=== PATIENT | female | born 1945 | race Caucasian/White ===

== ENCOUNTER 2017-03-29 12:15 | Day surgery (SDC) | payer MEDICARE, OTHER ==
[~2017-03-29] VITALS: Ht 165.1 cm; Wt 90.7 kg
[~2017-03-29 12:15] MED LIST: ARTHRITIS PAIN650 MG PO; ASPIR-TRIN325 MG PO; ASPIRIN EC325 MG PO; ASPIRIN EC81 MG PO; BENADRYL25 MG PO; BYSTOLIC5 MG PO; COLLAGEN PLUS1 EACH PO; DAILY VITE1 EACH PO; DILAUDID4 MG PO; FEVERFEW EXTRACT1 GM PO; FISH OIL 1,0001 EAC1 PO; FISH OIL500 MG PO; LISINOPRIL10 MG PO; LISINOPRIL20 MG PO; LUTEIN20 M1 PO; MELATONIN5 M2 PO; MIRALAX17 GM PO; NORCO 7.5-3251 EACH PO; OCUVITE TABLET1 EAC1 PO; RESTASIS1 DROP OD; VITAMIN D250000 UNIT PO; VITAMIN D5000 UNIT PO; XARELTO10 MG PO; ZETIA10 MG PO
--- NOTE | 2017-03-29 13:45 | NUR ---
03/29/17 3518 Lora Schmidt PT DENIES PAIN AND DISCOMFORT, PT IS PASSING GAS
--- NOTE | 2017-03-30 13:23 | OR ---
[facility] [address] [place], [place] [address] Signed DATE OF OPERATION: 03/29/2017 SURGEON: Ameya Ochoa MD PREOPERATIVE DIAGNOSIS: History of tubular adenoma, 2013. POSTOPERATIVE DIAGNOSIS: Normal colon to cecum. PROCEDURE: Total colonoscopy to cecum. ANESTHESIA: Intravenous sedation, fentanyl 100 mcg, Versed 7 mg. INDICATION: This 71-year-old white Chinese-Turkmen woman who is a patient of Dr. Navarrete and underwent colonoscopy by nm in 2013, where she was found to have a tubular adenoma, which was resected. She has no family history of colon cancer. She has undergone knee replacement on the left side in the past by Dr. Andrae Quach. She is here for surveillance colonoscopy on the basis of her prior tubular adenoma, understands the risks of bleeding, infection, and perforation. FINDINGS: The prep was excellent. Complete colonoscopy was undertaken of the cecum. There was no sign of polyps, diverticular formation, colitis, or cancer. DESCRIPTION OF PROCEDURE: The patient was brought to the endoscopy suite and placed in lateral decubitus position given intravenous sedation to the point of slurred speech and nystagmus. Digital rectal examination was normal. An Olympus video colonoscope was passed in the rectum and manipulated throughout the colon, ultimately intubating the cecum. Abdominal wall stabilization was required to allow for full visualization. The scope was withdrawn from that point and examination throughout was undertaken showing no sign of abnormality. Retroflexed view in the rectum was normal as well. The scope was removed. The patient was taken to recovery room in good condition. Electronically Signed By: AMEYA OCHOA MD 03/30/17 1323 PATIENT NAME: CHEMA LENTZ OPERATIVE REPORT DATE OF : 47 PHYSICIAN: AMEYA OCHOA MD REPORT #: [id number] REPORT IS CONFIDENTIAL AND NOT TO BE RELEASED WITHOUT AUTHORIZATION [facility] [address] [facility] [place] [address] Signed CONCLUSION DIAGNOSIS: Normal colon. PLAN: Recommend repeat colonoscopy in 5-7 years, sooner if clinically indicated. She will return to the ongoing care of Dr. Navarrete otherwise. MD ROBSON Bourne/MODL /[id number] cc: Giles Navarrete MD Electronically Signed By: AMEYA OCHOA MD 03/30/17 1323 PATIENT NAME: CHEMA LENTZ OPERATIVE REPORT DATE OF : 47 PHYSICIAN: AMEYA OCHOA MD REPORT #: [id number] REPORT IS CONFIDENTIAL AND NOT TO BE RELEASED WITHOUT AUTHORIZATION
== END 2017-03-29 14:18 | disposition home or self-care (01) ==
LOC: OPS 12:15 → DS 12:15 → OPS 13:00
PROVIDERS: Surgery
PROC: 0DJD8ZZ Inspection of Lower Intestinal Tract, Via Natural or Artificial Opening Endoscopic (ICD-10-PCS; principal; 2017-03-29 13:00)
DX: Z12.11 Encounter for screening for malignant neoplasm of colon (principal); K21.9 Gastro-esophageal reflux disease without esophagitis; G43.909 Migraine, unspecified, not intractable, without status migrainosus; I10 Essential (primary) hypertension; J45.909 Unspecified asthma, uncomplicated; Z86.010 Personal history of colon polyps; Z90.710 Acquired absence of both cervix and uterus; Z90.49 Acquired absence of other specified parts of digestive tract; Z96.652 Presence of left artificial knee joint; Z98.890 Other specified postprocedural states
CPT/HCPCS: 99153; G0500; J0694; J2250; J3010; J7120

== ENCOUNTER 2018-12-21 20:37 | Emergency (ER) | payer MEDICARE, OTHER ==
[~2018-12-21] VITALS: Ht 165.1 cm; Wt 86.2 kg
--- OUTSIDE RECORDS SUMMARY | ~2018-12-21 | XMS | Clinical Summary ---
Demographics + + + | Address | [address] | | | [place] [address] | + + + | Home Phone | | + + + | Preferred Language | Unknown | + + + | Marital Status | | + + + | Mosque Affiliation | CAT | + + + | Race | White | + + + | Ethnic Group | Not or | + + + Author + + + | Author | [facility] | + + + | Organization | [facility] | + + + | Address | Unknown | + + + | Phone | Unavailable | + + + Support + + +---------+ + | Name | Relationship | Address | Phone | + + +---------+ + | Vijay Eisenberg | ECON | Unknown | | + + +---------+ + Care Team Providers + +------+ + | Care Leases And Land Supervisor Name | Role | Phone | + +------+ + | Unknown | PCP | Unavailable | + +------+ + Source Comments DANA is fully live on both [facility] and [facility] Allergies + + + + + + | Active Allergy | Reactions | Severity | Noted | Comments | | | | | Date | | + + + + + + | Codeine | | | 07/07/18 | | | | | | 95 | | + + + + + + Medications + + + +---------+------+------+-------+ | Medication | Sig | Dispensed | Refills | Star | End | Statu | | | | | | t | Date | s | | | | | | Date | | | + + + +---------+------+------+-------+ | ASPIRIN 81 MG TAB | None Entered | | 0 | | | Activ | | | | | | | | e | + + + +---------+------+------+-------+ | ZETIA 10 MG TAB | take 1 tablet (10mg) | | 0 | | | Activ | | | by oral route once | | | | | e | | | daily | | | | | | + + + +---------+------+------+-------+ | LISINOPRIL 10 MG | take 1 tablet (10mg) | | 0 | | | Activ | | TAB | by oral route once | | | | | e | | | daily | | | | | | + + + +---------+------+------+-------+ | FLONASE NA | None Entered | | 0 | | | Activ | | | | | | | | e | + + + +---------+------+------+-------+ | GLUCOSAMINE | None Entered | | 0 | | | Activ | | [id number] | | | | | | e | | OR | | | | | | | + + + +---------+------+------+-------+ | MSM OR | None Entered | | 0 | | | Activ | | | | | | | | e | + + + +---------+------+------+-------+ Active Problems Not on file Social History + +-------+ +--------+------+ | Tobacco Use | Types | Packs/Day | Years | Date | | | | | Used | | + +-------+ +--------+------+ | Never Assessed | | | | | + +-------+ +--------+------+ + + + | Sex Assigned at | Date Recorded | | | | + + + | Not on file | | + + + + + + + | Job Start Date | Occupation | Industry | + + + + | Not on file | Not on file | Not on file | + + + + + + + + | Travel History | Travel Start | Travel End | + + + + + + | No recent travel history available. | + + Last Filed Vital Signs + +---------+ + + | Vital Sign | Reading | Time Taken | Comments | + +---------+ + + | Blood Pressure | 128/76 | 12/31/2005 12:45 PM | | | | | PDT | | + +---------+ + + | Pulse | 60 | 12/31/2005 12:45 PM | | | | | PDT | | + +---------+ + + | Temperature | - | - | | + +---------+ + + | Respiratory Rate | 18 | 12/31/2005 12:45 PM | | | | | PDT | | + +---------+ + + | Oxygen Saturation | - | - | | + +---------+ + + | Inhaled Oxygen | - | - | | | Concentration | | | | + +---------+ + + | Weight | - | - | | + +---------+ + + | Height | - | - | | + +---------+ + + | Body Mass Index | - | - | | + +---------+ + + Plan of Treatment + + + + + | Health Maintenance | Due Date | Last Done | Comments | + + + + + | Pneumococcal | | | | | vaccination (1 of 2 | 2 | | | | - PCV13) | | | | + + + + + | Influenza (Flu) | | | | | vaccination (#1) | 9 | | | + + + + + Results Not on filefrom Last 3 Months Insurance + +--------+ +--------+ + +------+ | Payer | Benefi | Subscriber | Effect | Phone | Address | Type | | | t Plan | ID | nelia | | | | | | / | | Dates | | | | | | Group | | | | | | + +--------+ +--------+ + +------+ | BLUE [employer]OSS BLUE | REGENC | [phone] | 06/16/19 | [phone] | [address] | PPO | | SHIELD | E [employer] | x | 18-Pre | 8 | [id number] | | | | | | sent | | [place], | | | | | | | | [place] | | | | | | | | [phone] | | + +--------+ +--------+ + +------+ + +--------+ +--------+ + + | Guarantor Name | Accoun | Relation to | Date | Phone | Billing Address | | | t Type | Patient | of | | | | | | | | | | + +--------+ +--------+ + + | Emma Eisenberg | Person | Self | [birth year] | [address] | | | al/Fam | | 1946 | [phone] | [place] [address] | | | mike | | | 8 (Home) | | + +--------+ +--------+ + +"
--- OUTSIDE RECORDS SUMMARY | ~2018-12-21 | XMS | Encounter Summary ---
Demographics + + + | Address | [address] | | | [place] [address] | + + + | Home Phone | | + + + | Preferred Language | Unknown | + + + | Marital Status | | + + + | Sikh Affiliation | CAT | + + + | Race | White | + + + | Ethnic Group | Not or | + + + Author + + + | Author | [facility] | + + + | Organization | [facility] | + + + | Address | Unknown | + + + | Phone | Unavailable | + + + Support + + +---------+ + | Name | Relationship | Address | Phone | + + +---------+ + | iVjay Eisenberg | ECON | Unknown | | + + +---------+ + Care Team Providers + +------+ + | Care Axle Bearing Polisher Name | Role | Phone | + +------+ + | Unknown | PCP | Unavailable | + +------+ + Encounter Details +--------+ + + + + | Date | Type | Department | Care Team | Description | +--------+ + + + + | 03/19/ | Results | LAB [facility] [address] | [address] | | | 1994 | Only | [address] | [phone] | | | | | [place] | | | | | | [address] | | | | | | [phone] | | | +--------+ + + + + Social History + +-------+ +--------+------+ | Tobacco [...] recent travel history available. | + + documented as of this encounter Plan of Treatment Not on filedocumented as of this encounter Procedures + +--------+ + + + | Procedure Name | Priori | Date/Time | Associated Diagnosis | Comments | | | ty | | | | + +--------+ + + + | SURGICAL PATHOLOGY | Routin | 03/19/1994 | | Results for this | | | e | | | procedure are in the | | | | | | results section. | + +--------+ + + + documented in this encounter Results SURGICAL PATHOLOGY (03/19/1994) + + + + + + | Component | Value | Ref Range | Performed | Pathologist | | | | | At | Signature | + + + + + + | SURGICAL | SOURCE OF SPECIMEN: SEE | | [facility] | | | PATHOLOGY | RESULTS | | DEPARTMENT | | | | Preliminary | | OF | | | | History:CLINICAL | | PATHOLOGY | | | | HISTORYThe patient is a | | | | | | 48 year old 2 | | | | | | para 2 female who | | | | | | underwent acone biopsy | | | | | | in 1983 with continued | | | | | | bleeding from September to | | | | | | January. Shehad a | | | | | | dilatation and curettage | | | | | | 01/13. She does not | | | | | | receive any | | | | | | hormonaltherapy. | | | | | | GROSS | | | | | | DESCRIPTIONReceived from | | | | | | [facility] | | | | | | [facility], [place], | | | | | | [place], are nineslides | | | | | | bearing accession number | | | | | | [id number] and | | | | | | sublabeled A, B1-7, | | | | | | andC. The corresponding | | | | | | pathology report is | | | | | | dated 01/14/94. | | | | | | MICROSCOPIC | | | | | | DESCRIPTIONSlide | | | | | | [id number], labeled | | | | | | "ECC": The specimen | | | | | | consists mostly | | | | | | offragments of | | | | | | endometrial tissue | | | | | | showing and increased | | | | | | gland to stromaratio | | | | | | with the majority of the | | | | | | glands in the | | | | | | proliferative phase. | | | | | | Manyof the glands show | | | | | | dilation with some areas | | | | | | of infolding. In | | | | | | focalareas, the stroma | | | | | | is breaking down with an | | | | | | increased number of | | | | | | stromalleukocytes as | | | | | | well as hemorrhage. Also | | | | | | noted are small | | | | | | fragments ofdisconnected | | | | | | endocervical glands | | | | | | which appear normal. | | | | | | There is also asmall | | | | | | fragment of normal | | | | | | squamous mucosa. | | | | | | Slides B1-7, labeled | | | | | | "EMC": All these slides | | | | | | show similar | | | | | | histologicfeatures. | | | | | | There are fragments of | | | | | | endometrial tissue with | | | | | | and increasedgland to | | | | | | stroma ratio. Many of | | | | | | the glands are tortuous, | | | | | | dilated and | | | | | | showinfoldings. There | | | | | | are focal areas of | | | | | | stromal | | | | | | breakdown. Slide | | | | | | C, labeled "cervical | | | | | | polyp." This slide is | | | | | | a biopsy ofendocervical | | | | | | tissue showing areas of | | | | | | squamous metaplasia | | | | | | over normalendocervical | | | | | | glands. There is a focus | | | | | | of endometrial tissue | | | | | | present inthe cervical | | | | | | stroma. The cells making | | | | | | up the glands show no | | | | | | cytologicabnormalities. | | | | | | FINAL | | | | | | DIAGNOSISSlide | | | | | | [id number]:ENDOCERVICAL | | | | | | CURETTAGE | | | | | | (A): COMPLEX | | | | | | ENDOMETRIAL HYPERPLASIA | | | | | | WITHOUT | | | | | | ATYPIA DISCONNECTED | | | | | | FRAGMENTS OF BENIGN | | | | | | ENDOCERVICAL | | | | | | GLANDSENDOMETRIAL | | | | | | CURETTAGE | | | | | | (B): COMPLEX | | | | | | ENDOMETRIAL HYPERPLASIA | | | | | | WITHOUT ATYPIASPECIMEN | | | | | | LABELED "CERVICAL POLYP" | | | | | | | | | | | | (C): ENDOMETRIOSIS(Ou | | | | | | tside slides) | | | | | | Case dictated by Dusty | | | | | | Kingsley ChauhanCase | | | | | | reviewed by Giles | | | | | | Bib Huerta M.D.Also | | | | | | seen by: Christy | | | | | | Amanda | | | | | | Kingsleyt:03/25/94:cc/f(Nine | | | | | | slides returned with | | | | | | report) My | | | | | | electronic signature | | | | | | indicates that I have | | | | | | personally reviewed | | | | | | alldiagnostic slides, | | | | | | the gross and/or | | | | | | microscopic portion of | | | | | | thisreport and | | | | | | formulated the final | | | | | | diagnosis. | | | | + + + + + + + + | Specimen | + + | Other | + + + + + + + | Performing | Address | City/State/Zipcode | Phone Number | | Organization | | | | + + + + + | [facility] | [address] | [place] [address] | | | PATHOLOGY | [address] | | | + + + + + documented in this encounter Visit Diagnoses Not on filedocumented in this encounter
--- OUTSIDE RECORDS SUMMARY | ~2018-12-21 | XMS | Encounter Summary ---
Demographics + + + | Address | [address] | | | [place] [address] | + + + | Home Phone | | + + + | Preferred Language | Unknown | + + + | Marital Status | | + + + | Mu-Ism Affiliation | CAT | + + + | Race | White | + + + | Ethnic Group | Not or | + + + Author + + + | Author | [facility] | + + + | Organization | [facility] | + + + | Address | Unknown | + + + | Phone | Unavailable | + + + Support + + +---------+ + | Name | Relationship | Address | Phone | + + +---------+ + | Vijay Eisenberg | ECON | Unknown | | + + +---------+ + Care Team Providers + +------+ + | Care Manager Action Name | Role | Phone | + [...] | Only | [address] | [phone] | | | | | [place] | | | | | | [address] | | | | | | [phone] | | | +--------+ + + + [...] from | | | | | | [facility] | | | | | | [facility]ology, [place], | | | | | | [place], are nineslides | | | | | [...] DESCRIPTIONSlide | | | | | | [id number], labeled | | | | | | [...] | + + + + + | [facility] | [address] | [place] [address] | | | PATHOLOGY | [address] | | | + + + + + documented in this encounter Visit Diagnoses Not on filedocumented in this encounter
--- OUTSIDE RECORDS SUMMARY | ~2018-12-21 | XMS | Encounter Summary ---
Demographics + + + | Address | [address] | | | [place] [address] | + + + | Home Phone | | + + + | Preferred Language | Unknown | + + + | Marital Status | | + + + | Church Affiliation | CAT | + + + | Race | White | + + + | Ethnic Group | Not or | + + + Author + + + | Organization | Unknown | + + + | Address | Unknown | + + + | Phone | Unavailable | + + + Support + + +---------+ + | Name | Relationship | Address | Phone | + + +---------+ + | Vijay Eisenberg | ECON | Unknown | | + + +---------+ + Care Team Providers + +------+ + | Care Text Transcriber Name | Role | Phone | + +------+ + PCP | Unavailable | + +------+ + Encounter Details +--------+ + + + + | Date | Type | Department | Care Team | Description | +--------+ + + + + | 12/06/ | Office | | Note, Outpatient | Progress Note | | 2002 | Visit-Trans | | Clinic | | | | cribed | | | | +--------+ + + + [...] + + documented as of this encounter Progress Notes Interface, Solutions Engineer In - 08/30/2005 3:08 AM PDTCLINIC DATE: 12/06/2002 OTOLARYNGOLOGY CLINIC SUBJECTIVE: Ms. Eisenberg is a 57-year-old woman who has noted soreness in the left nose over the last several weeks. She had been given actually initial course of acyclovir thinking that this was an episode of herpes. She has also been given a course of antibiotics and bacitracin which has minimally improved her symptoms. She does have a history of allergic rhinitis and has been using Flonase for many years. This apparently works well. Rest of the history and physical exam details may be obtained from the note of Dr. Giles Aguillon. In summary, rigid nasal endoscopy of both nasal cavities revealed essentially clear right nasal cavity. Middle and inferior turbinates were clear. No pus was noted in the inferior and middle meatus. Left nasal cavity exam was significant for an anterior septal area of erythema and slight erosion; otherwise, the middle and inferior meatus were clear on the left side. No other masses were noted nor other lesions noted. The nasopharynx was clear. IMPRESSION AND PLAN: Likely irritation from the Flonase, and the manner in which the patient is using the Flonase is likely causing a septal irritation. We reviewed proper application of Flonase, this medication should be directed upwards and outwards and not directed toward the septum. The patient may use [place] Nasal spray as well on a regular basis. She may continue to use her bacitracin ointment for the next couple of weeks. The patient will, otherwise, follow up in 3 months' time. Justino Galindo M.D. CAROLE / CHEYANNE [id number] / [id number] / [id number] / [employer] Solutions Engineer In - 08/30/2005 3:08 AM PDTCLINIC DATE: 12/06/2002 CHIEF COMPLAINT: Sore in nose. HISTORY OF PRESENT ILLNESS: Ms. Eisenberg is a 57-year-old woman, who states that she has had some long-term difficulties with her sinuses. She was seen by us about 8 years ago, at which time her sinuses were clear, but she was started on Flonase nasal spray. She states that most of her symptoms resolved since she was started on Flonase. She has been using it since that time with brief interludes for various reasons. She is here today, because since July 2002, she developed a sore in the left side of her nasal cavity that she first was concerned it was caused by herpes, and therefore, she took various fugx-yre-ojuruaf herpes remedies with no relief. She was also then treated for a staphylococcal infection by her primary care physician using Bacitracin, which helped a little bit but not completely. Finally, she has been on the course of Keflex antibiotics, which also she feels may be helping but not completely. She states that she occasionally has a blood, when she blows her nose on the left side. She denies any other sinus symptoms like discolored nasal discharge, congestion, or postnasal drip. She has not had any sinus infections since she started the Flonase 8 years ago. PAST MEDICAL HISTORY: Otherwise positive for cardiac-related chest pain, which is controlled with Imdur and gastroesophageal reflux disease. PAST SURGICAL HISTORY: Hysterectomy, appendectomy, and cholecystectomy. MEDICATIONS: Imdur, Flonase, Protonix, and Keflex. ALLERGIES: CODEINE. SOCIAL HISTORY: She quit smoking 10 years ago, but amassed a 92-myxf-xkoy smoking history. She drinks 1 to 2 alcoholic drinks per week. She is a retired rehabilitation therapist and lives with her . She denies any pets. FAMILY HISTORY: Noncontributory. REVIEW OF SYSTEMS: Negative except as described above. PHYSICAL EXAMINATION VITAL SIGNS: Weight is 184 pounds, blood pressure 110/78, and pulse rate 74. GENERAL: She is an awake, alert, and pleasant woman in no apparent distress. HEENT: Head and face are symmetric. No obvious deformity. Ears: External auditory canals are clear. Tympanic membranes and middle ear spaces appear normal. Anterior rhinoscopy shows atrophic mucosa. No drainage or polyp seen. Oral cavity and oropharynx: She is edentulous with normal oral and oropharyngeal mucosa. NECK: Supple. No lymphadenopathy or masses. PROCEDURE: Nasal endoscopy. ANESTHESIA: Lidocaine 4% topical. DESCRIPTION OF THE PROCEDURE: A 30-degree, 4-mm scope was first passed into the right nasal cavity. The mucosa was atrophic predominantly in the anterior portion of her nasal cavity. The middle turbinate and inferior turbinate otherwise appeared normal. The middle meatus was clear with no purulence or polyps. The sphenoethmoid recess was clear. She did have a spur along her inferior septum that nearly above the inferior turbinate. The scope was then passed into the left side. The anterior septal mucosa is particularly atrophic and friable. There is no ulceration or mass noted. There is also an area of atrophy and friability on the anterioinferior turbinate. The remainder of the mucosa appears fairly normal. The middle meatus is clear. There is no purulence or polyp. The sphenoethmoid recess is clear. The nasal floor is clear. ASSESSMENT: Nasal mucosal atrophy with an area of friable and mucosa on her anterior septum. This is likely due to chronic Flonase use, and I suspect that the Flonase is directed directly at that spot on her septum when she activates the inhaler. PLAN: We discussed with her the option of changing the steroid spray, but I feel that she would probably mainly benefit from redirecting which way she sprays the Flonase so that she does not directly irritate this part of her septum. Therefore, she was educated on the proper use of the Flonase and specifically to aim the activator slightly laterally and superiorly each time she uses it. Additionally, she will start using saline nasal spray throughout the day to optimize her nasal hygiene. We will have her followup in 3 months' time to reassess. MD Justino Dill M.D. / [id number] / [id number] / [id number] / Tdocumented in this encounter Plan of Treatment Not on filedocumented as of this encounter Visit Diagnoses Not on filedocumented in this encounter"
--- OUTSIDE RECORDS SUMMARY | ~2018-12-21 | XMS | Clinical Summary ---
Demographics + + + | Address | [address] | | | [place] [address] | + + + | Home Phone | | + + + | Preferred Language | Unknown | + + + | Marital Status | | + + + | Yarsanism Affiliation | Unknown | + + + | Race | Unknown | + + + | Ethnic Group | Unknown | + + + Author + + + | Author | [facility] | | | and [place] | + + + | Organization | [facility] | | | and [place] | + + + | Address | Unknown | + + + | Phone | Unavailable | + + + Support + + +---------+ + | Name | Relationship | Address | Phone | + + +---------+ + | JANELLE MOON | ECON | Unknown | | + + +---------+ + | Janelle Moon | ECON | Unknown | + | + + +---------+ + Care Team Providers + +------+ + | Care Sap Bw Consultant Name | Role | Phone | + +------+ + | Giles Navarrete MD | PCP | | + +------+ + Allergies + + + +--------+ + | Active Allergy | Reactions | Severity | Noted | Comments | | | | | Date | | + + + +--------+ + | Codeine Sulfate | | | | | + + + +--------+ + Medications + + + +---------+------+------+-------+ | Medication | Sig | Dispensed | Refills | Star | End | Statu | | | | | | t | Date | s | | | | | | Date | | | + + + +---------+------+------+-------+ | ezetimibe (ZETIA) | Take 10 mg by mouth | | 0 | 09/ | | Activ | | 10 mg tablet | Daily. | | | 3/20 | | e | | | | | | 12 | | | + + + +---------+------+------+-------+ | lisinopril | Take 10 mg by mouth | | 0 | 091 | | Activ | | (PRINIVIL, ZESTRIL) | Daily. | | | 3/20 | | e | | 10 mg tablet | | | | 12 | | | + + + +---------+------+------+-------+ | aspirin 325 mg | Take 325 mg by mouth | | 0 | 1 | | Activ | | tablet | Daily. | | | 320 | | e | | | | | | 12 | | | + + + +---------+------+------+-------+ | multivitamin | 1 tablet by mouth | | 0 | 11/12 | | Activ | | (THERAGRAN) per | once daily | | | 320 | | e | | tablet | | | | 12 | | | + + + +---------+------+------+-------+ | UNABLE TO FIND | Xxitra | | 0 | | | Activ | | | | | | | | e | + + + +---------+------+------+-------+ | ergocalciferol | Take 50,000 Units by | | 0 | | | Activ | | (VITAMIN D-2) 50,000 | mouth Once a week. | | | | | e | | units capsule | | | | | | | + + + +---------+------+------+-------+ | fluticasone | 1 spray by Nasal | | 0 | | | Activ | | (FLONASE) 50 | route Daily. | | | | | e | | mcg/nasal spray | | | | | | | + + + +---------+------+------+-------+ | | Take 1 capsule by | | 0 | | | Activ | | glucosamine-chondroi | mouth Daily. | | | | | e | | tin 500-400 MG | | | | | | | | capsule | | | | | | | + + + +---------+------+------+-------+ | Multiple | Take 1 tablet by | | 0 | | | Activ | | Vitamins-Minerals | mouth Daily. | | | | | e | | (MULTIVITAMIN WITH | | | | | | | | MINERALS) tablet | | | | | | | + + + +---------+------+------+-------+ | aspirin 325 mg | Take 325 mg by mouth | | 0 | | | Activ | | tablet | daily (with | | | | | e | | | breakfast). | | | | | | + + + +---------+------+------+-------+ | ezetimibe (ZETIA) | Take 10 mg by mouth | | 0 | | | Activ | | 10 mg tablet | as needed. | | | | | e | + + + +---------+------+------+-------+ | lisinopril | Take 10 mg by mouth | | 0 | | | Activ | | (PRINIVIL, ZESTRIL) | 2 times daily. | | | | | e | | 10 mg tablet | | | | | | | + + + +---------+------+------+-------+ Active Problems + + + | Problem | Noted Date | + + + | HIATAL HERNIA | 04/21/2010 | + + + | HYPERTENSION | | + + + | NONSPECIFIC ABNORMAL RESULTS LIVR FUNCTION STUDY | | + + + | CONSTIPATION, CHRONIC | | + + + Encounters +--------+ + + + + | Date | Type | Specialty | Care Team | Description | +--------+ + + + + | 10/05/ | Orders Only | | Provider, | | | 2018 | | | Historical, MD | | +--------+ + + + + from Last 3 Months Social History + +-------+ +--------+------+ | Tobacco Use | Types | Packs/Day | Years | Date | | | | | Used | | + +-------+ +--------+------+ | Former Smoker | | | | | + +-------+ [...] + + Last Filed Vital Signs + + + + | Vital Sign | Reading | Time Taken | + + + + | Blood Pressure | 130/60 | 08/17/2018 1050 PDT | + + + + | Pulse | 87 | 08/17/2018 1050 PDT | + + + + | Temperature | - | - | + + + + | Respiratory Rate | 20 | 08/04/2017 1334 PDT | + + + + | Oxygen Saturation | - | - | + + + + | Inhaled Oxygen | - | - | | Concentration | | | + + + + | Weight | 90 kg (198 lb 6.4 | 08/17/2018 1050 PDT | | | oz) | | + + + + | Height | 165.1 cm (5' 5") | 08/17/2018 1050 PDT | + + + + | Body Mass Index | 33.02 | 08/17/2018 1050 PDT | + + + + Plan of Treatment +--------+ + + + + | Date | Type | Specialty | Care Team | Description | +--------+ + + + + | 02/13/ | Appointment | Radiology | Evelio Blount, | | | 2018 | | | MD [address] | | | | | | [place] [address] | | | | | | [phone] | | | | | | | | +--------+ + + + + | 02/27/ | Office | Cardiology | Evelio Blount, | | | 2019 | Visit | | MD [address] | | | | | | [place] [address] | | | | | | [phone] | | | | | | | | +--------+ + + + + + + + + + | Health Maintenance | Due Date | Last Done | Comments | + + + + + | Hepatitis C | | | | | Screening | 7 | | | + + + + + | Vaccine: | | | | | Dtap/Tdap/Td (1 - | 6 | | | | Tdap) | | | | + + + + + | Colorectal Cancer | | | | | Screening | 7 | | | | (Colonoscopy) | | | | + + + + + | Vaccine: Zoster (1 | | | | | of 2) | 7 | | | + + + + + | Breast Cancer | | | | | Screening | 2 | | | + + + + + | Vaccine: | | | | | Pneumococcal 65+ | 2 | | | | Low/Medium Risk (1 | | | | | of 2 - PCV13) | | | | + + + + + | Adult Annual | | | | | Wellness Visit | 9 | | | + + + + + | Vaccine: Influenza | | | | | (#1) | 9 | | | + + + + + Results Not on filefrom Last 3 Months Insurance + +--------+ +--------+ +---------+--------+ | Payer | Benefi | Subscriber | Effect | Phone | Address | Type | | | t Plan | ID | nelia | | | | | | / | | Dates | | | | | | Group | | | | | | + +--------+ +--------+ +---------+--------+ | MEDICARE | MEDICA | [id number] | 07/20/19 | [phone] | | Medica | | | RE | | 12-Pre | 5 | | re | | | PART A | | sent | | | | | | AND B | | | | | | + +--------+ +--------+ +---------+--------+ | [employer] | [employer] | [id number] | 07/20/19 | | | Medica | | | HEALTH | | 12-Pre | | | re | | | MDCR | | sent | | | | + +--------+ +--------+ +---------+--------+ + +--------+ +--------+ + + | Guarantor Name | Accoun | Relation to | Date | Phone | Billing Address | | | t Type | Patient | of | | | | | | | | | | + +--------+ +--------+ + + | Emma Eisenberg | Person | Self [birth year] | [address] | | | [place]/Peter | | 1946 | [phone] | [place] | | | mike | | | [address] (Home) | [address] | + +--------+ +--------+ + + Advance Directives Patient has advance care planning documents on file. For more information, please contact:[facility] and [facility] [place] [address]
--- OUTSIDE RECORDS SUMMARY | ~2018-12-21 | XMS | Encounter Summary ---
Demographics + + + | Address | [address] | | | [place] [address] | + + + | Home Phone | | + + + | Preferred Language | Unknown | + + + | Marital Status | | + + + | Tenriism Affiliation | CAT | + + + | Race | White | + + + | Ethnic Group | Not or | + + + Author + + + | Author | [facility] | + + + | Organization | [facility] | + + + | Address | Unknown | + + + | Phone | Unavailable | + + + Support + + +---------+ + | Name | Relationship | Address | Phone | + + +---------+ + | Vijay Eisenberg | ECON | Unknown | | + + +---------+ + Care Team Providers + +------+ + | Care Tool And Die Designer Name | Role | Phone | + +------+ + | Unknown | PCP | Unavailable | + +------+ + Encounter Details +--------+ + + + + | Date | Type | Department | Care Team | Description | +--------+ + + + + | 07/21/ | Office | General Internal | Note, Outpatient | Progress Note | | 1995 | Visit-Trans | Medicine [address] | Clinic | | | | jazmine | [address] | | | | | | Mailcode: [id number] | | | | | | Outpatient Clinic | | | | | | [facility], [address] | | | | | | [place], [place] | | | | | | [address] | | | | | | [phone] | | | +--------+ + + + [...] as of this encounter Progress Notes Interface, Fish And Wildlife Biologist In - 06/10/2006 1:06 AM PDT CLINIC DATE: 07/22/95 [facility] SUBJECTIVE: [facility] after vaginal hysterectomy and right salpingo-oophorectomy for adenomatous hyperplasia. She is now 50 and reports that her medical history has been complicated in the last year by some anginal attacks which she experienced when she was in [place] at [facility]. This has been investigated with arteriography which was normal and she is now taking Indur 60 mg. per day. She also complains of headaches that have been quite severe but which she has self medicated with some naturopathic medicines including natural estrogen. She is reluctant to discontinue this medication. She does complain of some occasional stress incontinence but no bowel problems. She is also concerned about some hair thinning that she has noticed in the last few months. Thyroid function tests when performed have always been negative. PHYSICAL EXAMINATION: GENERAL AND VITAL SIGNS: Shows a cheerful 50-year-old whose weight is 180 pounds and blood pressure 120/78. BREASTS: Symmetrical without dominant masses and there is no local or regional lymphadenopathy. ABDOMEN: There is no distention and no local areas of tenderness. No hepatosplenomegaly and no masses are palpable. PELVIC: The external genitalia are healthy. The vagina shows no evidence of vaginitis and appears well estrogenized and is well supported. Pap smear is taken. On bimanual examination no adnexal masses are palpable and the left ovary appears normal. IMPRESSION: A 50-year-old who may have experienced some symptoms of estrogen withdrawal. PLAN: FSH is drawn. Mammogram recommended. A letter will be sent to Dr. Espinosa in [place] when the FSH report is received. If the FSH is elevated then it will be suggested to the patient that she start on estrogen replacement. Otherwise, she will probably continue to use the naturopathic remedies. Jenn Mccracken M.D. Professor and Overhauler Bus Truck, Obstetrics and Gynecology FARZANAK:donal documented in this encounter Plan of Treatment Not on filedocumented as of this encounter Visit Diagnoses Not on filedocumented in this encounter"
--- OUTSIDE RECORDS SUMMARY | ~2018-12-21 | XMS | Clinical Summary ---
Demographics + + + | Address | [address] | | | [place] [address] | + + + | Home Phone | | + + + | Preferred Language | Unknown | + + + | Marital Status | | + + + | Denominational Affiliation | Unknown | + + + | Race | Unknown | + + + | Ethnic Group | Unknown | + + + Author + + + | Author | [facility] | | | and [place] | + + + | Organization | [facility] | | | and [...] Team Providers + +------+ + | Care Upholstery Trimmer Name | Role | Phone | + [...] | 2018 | | | MD [address] | | | | | | [place] [address] | | | | | | [phone] | | | | | | | | +--------+ + + + + | 02/27/ | Office | Cardiology | Evelio Blount, | | | 2019 | Visit | | MD [address] | | | | | | [place] [address] | | | | | | [phone] | | | | | | | [...] +--------+ +---------+--------+ | MEDICARE | MEDICA | [id number] | 07/20/19 | [phone] | | Medica | | | RE | | 12-Pre | 5 | | re | | | PART A | | sent | | | | | | AND B | | | | | | + +--------+ +--------+ +---------+--------+ | [employer] | MODA | [id number] | 07/20/19 | | | Medica | [...] mike | | | 8 (Home) | [address] | + +--------+ +--------+ + + Advance Directives Patient has advance care planning documents on file. For more information, please contact:[facility] [place] [address]
--- OUTSIDE RECORDS SUMMARY | ~2018-12-21 | XMS | Encounter Summary ---
Demographics + + + | Address | [address] | | | [place] [address] | + + + | Home Phone | | + + + | Preferred Language | Unknown | + + + | Marital Status | | + + + | Restorationist Affiliation | CAT | + + + | Race | White | + + + | Ethnic Group | Not or | + + + Author + + + | Author | [facility] | + + + | Organization | [facility] | + + + | Address | Unknown | + + + | Phone | Unavailable | + + + Support + + +---------+ + | Name | Relationship | Address | Phone | + + +---------+ + | Vijay Eisenberg | ECON | Unknown | | + + +---------+ + Care Team Providers + +------+ + | Care Mixer Wet Pour Name | Role | Phone | + +------+ + | Unknown | PCP | Unavailable | + +------+ + Reason for Referral Diagnostic Testing +--------+--------+ + + + + | Status | Reason | Specialty | Diagnoses / | Referred By | Referred To | | | | | Procedures | Contact | Contact | +--------+--------+ + + + + | Closed | | Clinical | Procedures | Cnl Eeg | Cnl Eeg Hrc | | | | Neurophysiolo | EEG | Hrc [address] | [address] | | | | gy | ROUTINE | [address] | | | | | | [address] | [address] | | | | | | Mailcode: | Mailcode: | | | | | | CR[address] | [address] | | | | | | Ginny | Ginny | | | | | | Research | Research | | | | | | [place] | | | | | | [place], [place] | [place], [place] | | | | | | [address] | [address] | | | | | | Phone: | Phone: | | | | | | [phone] | [phone] | | | | | | Fax: | Fax: | | | | | | [phone] | [phone] | +--------+--------+ + + + + Encounter Details +--------+ + + + + | Date | Type | Department | Care Team | Description | +--------+ + + + + | 02/22/ | Outside | Neurophysiology | Rosalba, | | | 2010 | Referral | EEG at [facility] [address] | Giles Painter MD | | | | Order | [address] | [address] | | | | | Mailcode: JOHN | [place] [address] | | | | | [facility] | [phone] | | | | | [place], [place] | | | | | | [address] | | | | | | [phone] | | | +--------+ + + + [...] | + +--------+ + + + | EEG ROUTINE | Routin | 02/19/2011 | | Results for this | | | e | | | procedure are in the | | | | | | results section. | + +--------+ + + + documented in this encounter Results EEG ROUTINE (02/19/2011) + + | Specimen | + + | | + + + + + | Narrative | Performed At | + + + | Patient Name: Emma Eisenberg Date of : 1945 | | | Date of Test: 02/19/2011 Place | | | of Service: [facility] Department: EEG [facility] - [id number] | | | ROUTINE EEG Reason for Exam: Evaluate for epileptiform activity | | | History: 65 year old female with diagnosis of 780.39. No other | | | clinical information is provided. Medications: Lisinopril, | | | flonase, vitamin D. Methods: This study was a Routine EEG with a | | | duration of 24 minutes. The recording was performed with routine | | | electrodes applied according to the 10-20 electrode placement system. | | | EKG, EOG monitoring were utilized. Video was not available. | | | Hyperventilation and intermittent photic stimulation were performed. | | | The recording was obtained on a digital system. Technologist's | | | Note: No skull defect or scalp edema were present. EEG | | | Description: 1. Background: The record was obtained in awake and | | | drowsy states. No sedation was used. The posterior awake dominant | | | background activity was a continuous, reactive rhythm of (9 Hz, 30-50 | | | uV). This was symmetric and well modulated, and attenuated with | | | eye opening. Symmetric diffuse frontocentral beta range activity was | | | present. 2. Interictal Findings: Abnormal slow wave | | | activity: Mild, irregular, diffuse slowing (6-8 Hz, 40-60 uV) was | | | occasionally seen, most prominent in the bitemporal regions (T3-T5, | | | and T4-T6). This appeared most obvious during what appeared to be | | | drowsiness and post-hyperventilation. Epileptiform activity: None. | | | 3. Ictal Activity: No seizures were observed. 4. Clinical | | | Events: None. 5. Other variants: None. 6. Activation: a) HV: | | | Hyperventilation was performed for 3 minutes with fair | | | effort that was noncontributory. b) IPS: During IPS at 1, 3, 6, | | | 10, 12, 15, 20, 30 Hz, symmetric bilateral driving of the occipital | | | rhythms appeared. Extra leads: Single EKG lead showed a normal | | | sinus rhythm. IMPRESSION This EEG is mildly abnormal. | | | Occasional mild irregular diffuse slowing was seen, most prominent | | | bitemporally. This is of unclear clinical significance and may be | | | related in part to drowsiness. Additionally, regional temporal | | | slowing may often be observed in patients of this age group. No | | | epileptiform activity is seen. No seizures were seen. Richard | | | Kingsley Hays Suggested CPT: 18822 - EEG Routine Awake Only | | | Suggested Dx: 780.39-Convulsions | | + + + documented in this encounter Visit Diagnoses Not on filedocumented in this encounter"
--- OUTSIDE RECORDS SUMMARY | ~2018-12-21 | XMS | Encounter Summary ---
Demographics + + + | Address | [address] | | | [place] [address] | + + + | Home Phone | | + + + | Preferred Language | Unknown | + + + | Marital Status | | + + + | Restoration Affiliation | CAT | + + + | Race | White | + + + | Ethnic Group | Not or | + + + Author + + + | Author | [facility] | + + + | Organization | [facility] | + + + | Address | Unknown | + + + | Phone | Unavailable | + + + Support + + +---------+ + | Name | Relationship | Address | Phone | + + +---------+ + | Vijay Eisenberg | ECON | Unknown | | + + +---------+ + Care Team Providers + +------+ + | Care Rn Progressive Care Name | Role | Phone | + +------+ + | Unknown | PCP | Unavailable | + +------+ + Encounter Details +--------+ + + + + | Date | Type | Department | Care Team | Description | +--------+ + + + + | 07/07/ | Results | LAB CORE [address] | Jose Bishop | | | 1994 | Only | [address] | [phone] | | | | | [place] | | | | | | [address] | | | | | | [phone] | | | +--------+ + + + [...] + | SURGICAL PATHOLOGY | Routin | 07/07/1994 | | Results for this | | | e | | | procedure are in the | | | | | | results section. | + +--------+ + + + documented in this encounter Results SURGICAL PATHOLOGY (07/07/1994) + + + + + + | Component | Value | Ref Range | Performed | Pathologist | | | | | At | Signature | + + + + + + | SURGICAL | SOURCE OF SPECIMEN: SEE | | [facility] | | | PATHOLOGY | RESULTS | | DEPARTMENT | | | | Preliminary History:OR | | OF | | | | CONSULTATION Called | | PATHOLOGY | | | | to open | | | | | | specimenBy: Pari | | | | | | MS Lion IV | | | | | | CLINICAL HISTORYThe | | | | | | patient is a 48 year old | | | | | | 2 para 2 female | | | | | | with a history | | | | | | ofendometrial biopsy and | | | | | | D&C performed 01/13/94 | | | | | | at an outside facility. | | | | | | Theoutside slides were | | | | | | reviewed at [facility] and | | | | | | showed complex | | | | | | hyperplasiawithout | | | | | | atypia ([id number]). The | | | | | | patient is status post | | | | | | cervical conizationin | | | | | | 1983. She had bleeding | | | | | | from September - January, | | | | | | 1993. GROSS | | | | | | DESCRIPTIONThe specimen | | | | | | is received fresh | | | | | | labelled uterus and | | | | | | cervix. Present is | | | | | | arecognizable uterus and | | | | | | cervix weighing 126 | | | | | | grams and measuring 9.0 | | | | | | x5.0 x 3.0. The cervix | | | | | | is 3.0 cm in diameter | | | | | | with a slit-like os | | | | | | which is1.0 cm in | | | | | | greatest diameter. The | | | | | | serosal surface of the | | | | | | uterus is pinkto boss | | | | | | with no fibrovascular | | | | | | adhesions noted. The | | | | | | specimen is opened | | | | | | at3:00 along the left | | | | | | lateral border. The | | | | | | squamocolumnar junction | | | | | | isunremarkable. Within | | | | | | the endocervix is a 1.0 | | | | | | cm cystic lesion which | | | | | | isfilled with dark brown | | | | | | fluid. The endometrial | | | | | | cavity measures 5.0 x | | | | | | 2.5cm. The endometrium | | | | | | is light boss and lush | | | | | | and 0.4 cm in | | | | | | greatestthickness. | | | | | | Within the myometrium | | | | | | are three firm white | | | | | | well | | | | | | circumscribednodules | | | | | | which appear to be | | | | | | leiomyomata; the largest | | | | | | measuring 0.8 cm | | | | | | ingreatest diameter and | | | | | | the smallest 0.5 cm in | | | | | | greatest diameter. | | | | | | Themyometrium is 2.3 cm | | | | | | thick at the posterior | | | | | | fundus. Also | | | | | | received with this | | | | | | specimen is a right | | | | | | fallopian tube and | | | | | | ovarywhich weighs 20 | | | | | | grams. The fallopian | | | | | | tube is 4.5 cm in length | | | | | | with anaverage diameter | | | | | | of 0.5 cm. The ovary is | | | | | | 4.5 x 2.5 x 1.5 cm. The | | | | | | surfaceof the ovary is | | | | | | white to yellow. The | | | | | | ovary is bisected to | | | | | | reveal asmooth-walled | | | | | | 3.5 x 2.5 cm cyst which | | | | | | is filled with | | | | | | approximately 5 ccof | | | | | | clear yellow fluid. | | | | | | There is a thin rim of | | | | | | ovarian parenchyma on | | | | | | theoutside of the cyst | | | | | | wall which is | | | | | | approximately 0.1 cm in | | | | | | thickness. Thefallopian | | | | | | tube has a smooth mcdaniel | | | | | | surface. SLIDE | | | | | | INDEX:cassette A, cervix | | | | | | from 3:00 and | | | | | | 9:00cassette B, cystic | | | | | | lesion within endocervix | | | | | | and presumed | | | | | | leiomyomatacassettes | | | | | | C-E, endometriumcassette | | | | | | F, full-thickness | | | | | | endomyometriumcassette | | | | | | G, fallopian | | | | | | tubecassette H, ovarian | | | | | | cyst wall.Dictated by | | | | | | Pari Seymour, MS | | | | | | IV/kag | | | | | | FINAL DIAGNOSISUTERUS | | | | | | AND | | | | | | CERVIX: CERVIX: | | | | | | SQUAMOUS | | | | | | METAPLASIA TUBAL | | | | | | METAPLASIA ENDOMETRIU | | | | | | M: SLIGHT CHRONIC | | | | | | | | | | | | ENDOMETRITIS TUBA | | | | | | L | | | | | | METAPLASIA MYOMETRIUM | | | | | | : LEIOMYOMATA | | | | | | RIGHT | | | | | | OVARY: ENDOSALPIN | | | | | | GIOSIS RIGHT | | | | | | FALLOPIAN | | | | | | TUBE: CHRONIC | | | | | | SALPINGITIS Case | | | | | | reviewed by: Latisha | | | | | | Moncho Saul, | | | | | | M.Roel.Also seen | | | | | | by: Christy aPtel, | | | | | | M.Roel. :td | | | | | | My electronic signature | | | | | [...] | + + + + + | [facility] | [address] | [place] [address] | | | PATHOLOGY | [address] | | | + + + + + documented in this encounter Visit Diagnoses Not on filedocumented in this encounter"
--- OUTSIDE RECORDS SUMMARY | ~2018-12-21 | XMS | Encounter Summary ---
Demographics + + + | Address | [address] | | | [place] [address] | + + + | Home Phone | | + + + | Preferred Language | Unknown | + + + | Marital Status | | + + + | Pentecostal Affiliation | CAT | + + + | Race | White | + + + | Ethnic Group | Not or | + + + Author + + + | Author | [facility] | + + + | Organization | [facility] | + + + | Address | Unknown | + + + | Phone | Unavailable | + + + Support + + +---------+ + | Name | Relationship | Address | Phone | + + +---------+ + | Vijay Eisenberg | ECON | Unknown | | + + +---------+ + Care Team Providers + +------+ + | Care Pediatric Dental Hygienist Name | Role | Phone | + [...] | Only | [address] | [phone] | | | | | [place] | | | | | | [address] | | | | | | [phone] | | | +--------+ + + + [...] | SOURCE OF SPECIMEN: SEE | | DESU | | | PATHOLOGY | RESULTS | [...] | | | | | reviewed at [facility] and | | | | | | [...] | | | | | by: Christy Patel, | | | | | | M.Roel. [...] | + + + + + | [facility] | [address] | [place] [address] | | | PATHOLOGY | [address] | | | + + + + + documented in this encounter Visit Diagnoses Not on filedocumented in this encounter"
--- OUTSIDE RECORDS SUMMARY | ~2018-12-21 | XMS | Clinical Summary ---
Demographics + + + | Address | [address] | | | [place] [address] | + + + | Home Phone | | + + + | Preferred Language | Unknown | + + + | Marital Status | | + + + | Temple Affiliation | CAT | + + + [...] Team Providers + +------+ + | Care Chair Trimmer Name | Role | Phone | + +------+ + | Unknown | PCP | Unavailable | + +------+ + Source Comments DANA is fully live on both [facility] and [facility] In[facility] Allergies + + + + [...] 0 | | | Activ | | [id number] | | | | | | e [...] | x | 18-Pre | 8 | [address] | | | | | | sent | | [place], | | | | | | | | [place] | | | | | | | | [address] | | + +--------+ +--------+ + +------+ [...] | 1946 | [phone] | [place] [address] | | | mike | | | 8 (Home) | | + +--------+ +--------+ + +"
--- OUTSIDE RECORDS SUMMARY | ~2018-12-21 | XMS | Encounter Summary ---
Demographics + + + | Address | [address] | | | [place] [address] | + + + | Home Phone | | + + + | Preferred Language | Unknown | + + + | Marital Status | | + + + | Tenriism Affiliation | Unknown | + + + | Race | Unknown | + + + | Ethnic Group | Unknown | + + + Author + + + | Author | [facility] | | | and [place] | + + + | Organization | [facility] | | | and [...] Janelle Moon | ECON | Unknown | | + + +---------+ + Care Team Providers + +------+ + | Care Pond Sawyer Name | Role | Phone | + +------+ + | Giles Navarrete MD | PCP | | + +------+ + Encounter Details +--------+ + + + + | Date | Type | Department | Care Team | Description | +--------+ + + + + | 10/05/ | Orders Only | [facility] | Provider, | | | 2018 | | SYSTEM GENERIC OP | MD [address] | | | | | [address] | [address] | | | | | [address] [place], [place] | [place] [address] | | | | | [address] | | | | | | [phone] | | | +--------+ + + + [...] as of this encounter Plan of Treatment +--------+ + + + + | Date | Type | Specialty | Care Team | Description | +--------+ + + + + | 02/13/ | Appointment | Radiology | Evelio Blount, | | | 2018 | | | MD [address] | | | | | | [place] [address] | | | | | | [phone] | | | | | | | | +--------+ + + + + | 02/27/ | Office | Cardiology | Evelio Blount, | | | 2018 | Visit | | MD [address] | | | | | | [place] [address] | | | | | | [phone] | | | | | | | | +--------+ + + + + documented as of this encounter Visit Diagnoses Not on filedocumented in this encounter"
--- OUTSIDE RECORDS SUMMARY | ~2018-12-21 | XMS | Encounter Summary ---
Demographics + + + | Address | [address] | | | [place] [address] | + + + | Home Phone | | + + + | Preferred Language | Unknown | + + + | Marital Status | | + + + | Yazidi Affiliation | CAT | + + + [...] Team Providers + +------+ + | Care Inspector Automatic Typewriter Name | Role | Phone | + +------+ + PCP | Unavailable | + +------+ + Encounter Details +--------+ + + + + | Date | Type | Department | Care Team | Description | +--------+ + + + + | 12/07/ | Results | | Other, Faculty | | | 1994 | Only | | [phone] | | +--------+ + + + + [...] | + +--------+ + + + | CT SINUSITIS SCREEN | Routin | 12/07/1994 | | Results for this | | | e | 11:25 AM | | procedure are in the | | | | PDT | | results section. | + +--------+ + + + documented in this encounter Results CT SINUSITIS SCREEN (12/07/1994 11:25 AM PDT) + + + + + + | Component | Value | Ref Range | Performed | Pathologist | | | | | At | Signature | + + + + + + | CT | [facility] | | | | | SINUSITIS | CHEMA | | | | | SCREEN | | | | | | | | | | | | | 04-03-33 CT | | | | | | SINUS | | | | | | SCREEN: 12/07/94 at | | | | | | 11:25 Dictated | | | | | | 12/09/94 | | | | | | INDICATION: Rule out | | | | | | sinusitis. | | | | | | PROCEDURE: A | | | | | | screening coronal sinus | | | | | | CT is performed in | | | | | | routinefashion without | | | | | | IV contrast. | | | | | | FINDINGS: The right | | | | | | ostiomeatal unit appears | | | | | | patent. There is | | | | | | veryminimal dependent | | | | | | antral thickening | | | | | | without fluid. The | | | | | | remainingsinuses are | | | | | | clear. On the left, the | | | | | | ostiomeatal unit is | | | | | | patent. There is no | | | | | | significantsinusitis and | | | | | | no fluid seen. The | | | | | | nasal cavity shows a | | | | | | small spur projecting to | | | | | | the right in the midto | | | | | | posterior portion, | | | | | | approaching but not | | | | | | contacting | | | | | | inferiorturbinate. Th | | | | | | ere are no masses. | | | | | | IMPRESSION: The | | | | | | ostiomeatal units are | | | | | | patent. There is no | | | | | | significant | | | | | | sinusitis.There is a | | | | | | spur which projects to | | | | | | the right. END OF | | | | | | IMPRESSION: | | | | + + + + + + + + | Specimen | + + | | + + + + + | Narrative | Performed At | + + + | Ordered by ALESSIO WALKER | | + + + + +---------+ + + | Performing | Address | City/State/Zipcode | Phone Number | | Organization | | | | + +---------+ + + | [facility] | | | | | RADIOLOGY | | | | + +---------+ + + documented in this encounter Visit Diagnoses Not on filedocumented in this encounter"
--- OUTSIDE RECORDS SUMMARY | ~2018-12-21 | XMS | Encounter Summary ---
Demographics + + + | Address | [address] | | | [place] [address] | + + + | Home Phone [...] + + + | Author | [facility] | + + + | Organization | [facility] | + + + | Address | Unknown | + + + | Phone | Unavailable | + + + Support + + +---------+ + | Name | Relationship | Address | Phone | + + +---------+ + | Vijay Eisenberg | ECON | Unknown | | + + +---------+ + Care Team Providers + +------+ + | Care Plant Buyer Name | Role | Phone | + +------+ + | Unknown | PCP | Unavailable | + +------+ + Encounter Details +--------+ + + + + | Date | Type | Department | Care Team | Description | +--------+ + + + + | 06/11/ | Results | Registration [address] | | | | 1994 | Only | [address] | | | | | | [address] Mailcode: [address] | | | | | | [place], [place] | | | | | | [address] | | | | | | [phone] | | | +--------+ + + + [...] | + +--------+ + + + | CBC TESTS 2 | Routin | 06/11/1994 | | Results for this | | | e | 3:04 PM | | procedure are in the | | | | PST | | results section. | + +--------+ + + + documented in this encounter Results CBC TESTS 2 (06/11/1994 3:04 PM PST) + + + + + + | Component | Value | Ref Range | Performed | Pathologist | | | | | At | Signature | + + + + + + | WHITE CELL | 8.6 | K/CU MM | | | | COUNT | | | | | + + + + + + | RED CELL | 4.18 | M/CU MM | | | | COUNT | | | | | + + + + + + | HEMOGLOBIN | 12.7 | GM/DL | | | + + + + + + | HEMATOCRIT | 36.9 (L) | % | | | + + + + + + | MCV | 88.3 | FL | | | + + + + + + | MCH | 30.4 | PG | | | + + + + + + | MCHC | 34.4 (H) | GM/DL | | | + + + + + + | RDW | 12.4 | % | | | + + + + + + | PLATELET | 339. | K/CU MM | | | | COUNT | | | | | + + + + + + | MPV | 8.1 | FL | | | + + + + + + + + | Specimen | + + | | + + + + + + + | Performing | Address | City/State/Zipcode | Phone Number | | Organization | | | | + + + + + | [facility] | [address] | [place] [address] | | | PATHOLOGY | [address] | | | + + + + + documented in this encounter Visit Diagnoses Not on filedocumented in this encounter"
--- OUTSIDE RECORDS SUMMARY | ~2018-12-21 | XMS | Encounter Summary ---
Demographics + + + | Address | [address] | | | [place] [address] | + + + | Home Phone | | + + + | Preferred Language | Unknown | + + + | Marital Status | | + + + | Samaritan Affiliation | CAT | + + + | Race | White | + + + | Ethnic Group | Not or | + + + Author + + + | Author | [facility] | + + + | Organization | [facility] | + + + | Address | Unknown | + + + | Phone | Unavailable | + + + Support + + +---------+ + | Name | Relationship | Address | Phone | + + +---------+ + | Vijay Eisenberg | ECON | Unknown | | + + +---------+ + Care Team Providers + +------+ + | Care Mixer Slagman Name | Role | Phone | + +------+ + | Unknown | PCP | Unavailable | + +------+ + Encounter Details +--------+ + + + + | Date | Type | Department | Care Team | Description | +--------+ + + + + | 07/06/ | Results | Registration [address] | | | | 1994 | Only | [address] | | | | | | [address] Mailcode: [address] | | | | | | [place], [place] | | | | | | [address] | | | | | | [phone] | | | +--------+ + + + [...] | CBC TESTS 2 | Routin | 07/06/1994 | | Results for this | | | e | 2:00 PM | | procedure are in the | | | | PDT | | results section. | + +--------+ + + + documented in this encounter Results CBC TESTS 2 (07/06/1994 2:00 PM PDT) + + + + + + | Component | Value | Ref Range | Performed | Pathologist | | | | | At | Signature | + + + + + + | WHITE CELL | 8.2 | K/CU MM | | | | COUNT | | | | | + + + + + + | RED CELL | 4.09 | M/CU MM | | | | COUNT | | | | | + + + + + + | HEMOGLOBIN | 12.3 | GM/DL | | | + + + + + + | HEMATOCRIT | 36. (L) | % | | | + + + + + + | MCV | 87.9 | FL | | | + + + + + + | MCH | 30.1 | PG | | | + + + + + + | MCHC | 34.2 (H) | GM/DL | | | + + + + + + | RDW | 12.2 | % | | | + + + + + + | PLATELET | 347. | K/CU MM | | | | COUNT | | | | | + + + + + + | MPV | 8.5 | FL | | | + + + + + + + + | Specimen | + + | | + + + + + + + | Performing | Address | City/State/Zipcode | Phone Number | | Organization | | | | + + + + + | [facility] | [address] | [place] [address] | | | PATHOLOGY | [address] | | | + + + + + documented in this encounter Visit Diagnoses Not on filedocumented in this encounter"
--- OUTSIDE RECORDS SUMMARY | ~2018-12-21 | XMS | Encounter Summary ---
Demographics + + + | Address | [address] | | | [place] [address] | + + + | Home Phone | | + + + | Preferred Language | Unknown | + + + | Marital Status | | + + + | Scientologist Affiliation | CAT | + + + | Race | White | + + + | Ethnic Group | Not or | + + + Author + + + | Author | [facility] | + + + | Organization | [facility] | + + + | Address | Unknown | + + + | Phone | Unavailable | + + + Support + + +---------+ + | Name | Relationship | Address | Phone | + + +---------+ + | Vijay Eisenberg | ECON | Unknown | | + + +---------+ + Care Team Providers + +------+ + | Care Chemical Production Technician Name | Role | Phone | + +------+ + | Unknown | PCP | Unavailable | + +------+ + Encounter Details +--------+ + + + + | Date | Type | Department | Care Team | Description | +--------+ + + + + | 07/10/ | Discharge | Allergy Clinic at | Summary, Discharge | D/C Summary ODDS | | 1994 | Summary-Tra | [facility] [address] | | | | | nscribed | [address] | | | | | | Mailcode: [id number] | | | | | | [address] | | | | | | [facility] | | | | | | [place] [address] | | | | | | [phone] | | | +--------+ + + + [...] + + documented as of this encounter Discharge Summaries Interface, Flying Squad Worker In - 06/27/2006 3:05 AM PDT [address] [address] [facility] MEDICAL SUMMARY OF HOSPITALIZATION Med Rec No.: [id number] Admission Date: 07/07/94 Name: Emma Eisenberg Discharge Date: 07/10/94 STAFF PHYSICIAN: Jenn Mccracken M.D. Professor and Talent Acquisition Assistant, Obstetrics and Gynecology PRINCIPAL FINAL DIAGNOSIS: Complex hyperplasia of endometrium. ADDITIONAL DIAGNOSES: 1. Enlarged right ovary. 2. Dysfunctional uterine bleeding. PRINCIPAL PROCEDURE: Total vaginal hysterectomy. ADDITIONAL PROCEDURES: Right salpingo-oophorectomy. REASON FOR ADMISSION: The patient is a 49-year-old 2, para 2, with a long history of dysfunctional bleeding and complex hyperplasia not responsive to Provera. HOSPITAL COURSE: She was admitted on 07/07/94 and underwent a total vaginal hysterectomy without complications. Estimated blood loss was 250 cc. Her postoperative course was uncomplicated. She remained afebrile throughout. Her Mckoy catheter was discontinued on postoperative day #1, and she was voiding without problem. She was quickly advanced to a general diet, which she tolerated without difficulty. Pain was well controlled with Vicodin. CONDITION ON DISCHARGE: Stable. DISCHARGE MEDICATIONS: 1. Vicodin 1-2 p.o. q. 3-4 hours p.r.n. pain (#30). 2. Mylicon p.r.n. 3. Colace 100 mg p.o. b.i.d. DISCHARGE INSTRUCTION(S): The patient was instructed to remain at pelvic rest for two weeks, to do no heavy lifting for six weeks, and no driving for one week. She was instructed to eat a general diet as tolerated. The patient will follow up with Dr. Mccracken in two weeks for a routine postoperative appointment. If she experiences fever, chills, constipation, bright red vaginal bleeding, foul-smelling vaginal discharge, redness or swelling of either calf, or additional problems, she will call Dr. Mccracken or his nurse prior to that. Mary Carmen Johnson M.D. Resident, Obstetrics and Gynecology Jenn Mccracken M.D. Professor and Talent Acquisition Assistant, Obstetrics and Gynecology ANÍBAL/ramon P cc: documented in this encounter Plan of Treatment Not on filedocumented as of this encounter Visit Diagnoses Not on filedocumented in this encounter"
--- OUTSIDE RECORDS SUMMARY | ~2018-12-21 | XMS | Encounter Summary ---
Demographics + + + | Address | [address] | | | [place] [address] | + + + | Home Phone | | + + + | Preferred Language | Unknown | + + + | Marital Status | | + + + | Latter-Day Affiliation | CAT | + + + | Race | White | + + + | Ethnic Group | Not or | + + + Author + + + | Author | [facility] | + + + | Organization | [facility] | + + + | Address | Unknown | + + + | Phone | Unavailable | + + + Support + + +---------+ + | Name | Relationship | Address | Phone | + + +---------+ + | Vijay Eisenberg | ECON | Unknown | | + + +---------+ + Care Team Providers + +------+ + | Care Flame Annealing Machine Setter Name | Role | Phone | + [...] Clinic | | | | | | [facility], [address] | | | | | | [place], [place] | | | | | | [address] | | | | | | [phone] | | | +--------+ + + + [...] as of this encounter Progress Notes Interface, Environmental Protection Officer In - 06/10/2006 1:06 AM PDT CLINIC DATE: 07/22/95 [facility] SUBJECTIVE: [facility] vaginal hysterectomy and right salpingo-oophorectomy for adenomatous hyperplasia. She is now 50 and reports that her medical history has been complicated in the last year by some anginal attacks which she experienced when she was in [place] at [facility]. This has been investigated with arteriography which [...] will be sent to Dr. Espinosa in [place] when the FSH report is received. If the FSH is elevated then it will be suggested to the patient that she start on estrogen replacement. Otherwise, she will probably continue to use the naturopathic remedies. Jenn Mccracken M.D. Professor and Software Installer, Obstetrics and Gynecology FARZANAK:donal documented in this encounter Plan of Treatment Not on filedocumented as of this encounter Visit Diagnoses Not on filedocumented in this encounter"
--- OUTSIDE RECORDS SUMMARY | ~2018-12-21 | XMS | Encounter Summary ---
Demographics + + + | Address | [address] | | | [place] [address] | + + + | Home Phone | | + + + | Preferred Language | Unknown | + + + | Marital Status | | + + + | Orthodox Affiliation | CAT | + + + | Race | White | + + + | Ethnic Group | Not or | + + + Author + + + | Author | [facility] | + + + | Organization | [facility] | + + + | Address | Unknown | + + + | Phone | Unavailable | + + + Support + + +---------+ + | Name | Relationship | Address | Phone | + + +---------+ + | Vijay Eisenberg | ECON | Unknown | | + + +---------+ + Care Team Providers + +------+ + | Care Tourist Cabin Keeper Name | Role | Phone | + +------+ + | Unknown | PCP | Unavailable | + +------+ + Reason for Visit + + + | Reason | Comments | + + + | New patient | | | consultation | | + + + | Examination Of Skin | skin check and lumps in forearms. | + + + Encounter Details +--------+---------+ + + + | Date | Type | Department | Care Team | Description | +--------+---------+ + + + | 12/31/ | Office | Medical | Alondra Bravo, | Solar Lentigo; Other | | 2005 | Visit | Dermatology [address] | MD | Seborrheic | | | | [address] | | Keratosis; Skin Tag; | | | | Mailcode: [id number] | | Acquired Nasal | | | | Outpatient Clinic | | Deformity | | | | Building, Room 4[address] | | | | | | [place], [place] | | | | | | [address] | | | | | | [phone] | | | +--------+---------+ + + + Social History + +-------+ [...] + + documented as of this encounter Last Filed Vital Signs + +---------+ + [...] - | | + +---------+ + + documented in this encounter Progress Alondra Greenwood - 12/31/2005 9:49 PM PDTATTENDING PHYSICIAN ATTESTATION I personally interviewed the patient, duplicated the pertinent parts of the physical examin ation and personally formulated the plan with the resident. I have reviewed the residents note, agree with their documentation and have edited their no te to add my findings and comments. Aleshia Arvizu - 12/13 1:24 PM [facility]TFoll[facility] Emma Eisenberg is a 60 y.o. female here for evaluation of a brown spot on her nose pres ent for about 3-4 months. She also notes her family has mentioned a "divot like I was pinche d" on the nasal sidewall. She states it feels like there is a "pulling sensation" inside the nose. No pain, bleeding or itching. No history of skin cancer. ROS: Overall feeling well. No fevers/ chills. No weight loss. OBJECTIVE: Pleasant female, alert and oriented in no acute distress Skin Exam: The head, neck, chest, back, abdomen, arms, forearms, hands were examined and were within normal limits except for the following: -left nasal sidewall: there are 2 depressions. Upon palpation the deep component is asymmet chelsey. There is no abnormal skin surface change overlying these areas. -left nasal sidewall: 5mm slightly hyperpigmented macule not overlying indentation c/w a so lar lentigo -right dorsolateral hand: 0.4 mm brown stuck-on appearing papule -left axilla: soft skin colored pedunculated papule Assessment/Plan: 1) Indentation of the left nasal sidewall. We recommend evaluation by ENT. The skin appears normal in the area of indentation. 2) Solar Lentigo nasal sidewall: -Triluma cream Q daily for 1-2 months for lightening - sample given. 3) right dorsal hand: seborrheic keratosis. The patient was reassured that the lesion was b enign 4) Skin tag left axilla. The patient was reassured that the lesion is benign Follow up: Refer to ENT for evaluation Aleshia Hunter MD Resident Physician, [facility] Department of Dermatology documented in this encoun ter Plan of Treatment Not on filedocumented as of this encounter Visit Diagnoses + + | Diagnosis | + + | Solar lentigo Other dyschromia | + + | Other seborrheic keratosis | + + | Skin tag Unspecified hypertrophic and atrophic condition of skin | + + | Acquired nasal deformity Acquired deformity of nose | + + documented in this encounter
--- OUTSIDE RECORDS SUMMARY | ~2018-12-21 | XMS | Encounter Summary ---
Demographics + + + | Address | [address] | | | [place] [address] | + + + | Home Phone | | + + + | Preferred Language | Unknown | + + + | Marital Status | | + + + | Methodist Affiliation | CAT | + + + | Race | White | + + + | Ethnic Group | Not or | + + + Author + + + | Author | [facility] | + + + | Organization | [facility] | + + + | Address | Unknown | + + + | Phone | Unavailable | + + + Support + + +---------+ + | Name | Relationship | Address | Phone | + + +---------+ + | Vijay Eisenberg | ECON | Unknown | | + + +---------+ + Care Team Providers + +------+ + | Care Hull Molder Name | Role | Phone | + [...] [id number] | | | | | | [place], [place] | | | | | | [address] | | | | | | [phone] | | | +--------+ + + + [...] | + + + + + | [facility] | [address] | [place] [address] | | | PATHOLOGY | [address] | | | + + + + + documented in this encounter Visit Diagnoses Not on filedocumented in this encounter"
--- OUTSIDE RECORDS SUMMARY | ~2018-12-21 | XMS | Clinical Summary ---
Demographics + + + | Address | [address] | | | [place] [address] | + + + | Home Phone | | + + + | Preferred Language | Unknown | + + + | Marital Status | | + + + | Hoahaoism Affiliation | Unknown | + + + | Race | Unknown | + + + | Ethnic Group | Unknown | + + + Author + + + | Author | [facility] (Historical as of | | | 10-28-18) | + + + | Organization | [facility] (Historical as of | | | 10-28-18) | + + + | Address | Unknown | + + + | Phone | Unavailable | + + + Support + + +---------+ + | Name | Relationship | Address | Phone | + + +---------+ + | Janelle Garzon | ECON | Unknown | | + + +---------+ + Care Team Providers + +------+ + | Care Bessemer Converter Blower Name | Role | Phone | + +------+ + | Giles Navarrete MD | PP | | + +------+ + Allergies No Known Allergies Current Medications + + +-------+---------+------+------+-------+ | Prescription | Sig. | Disp. | Refills | Star | End | Statu | | | | | | t | Date | s | | | | | | Date | | | + + +-------+---------+------+------+-------+ | lisinopril | Take 10 mg by mouth | | | | | Activ | | (ZESTRIL) 10 MG | 2 (two) times daily. | | | | | e | | tablet | | | | | | | + + +-------+---------+------+------+-------+ | UNABLE TO FIND | Xxitra | | | | | Activ | | | | | | | | e | + + +-------+---------+------+------+-------+ | aspirin 325 MG | Take 325 mg by mouth | | | | | Activ | | tablet | daily with | | | | | e | | | breakfast. | | | | | | + + +-------+---------+------+------+-------+ | ergocalciferol | Take 50,000 Units by | | | | | Activ | | (DRISDOL) [id number] | mouth once a week. | | | | | e | | units capsule | | | | | | | + + +-------+---------+------+------+-------+ | ezetimibe (ZETIA) | Take 10 mg by mouth | | | | | Activ | | 10 MG tablet | as needed. | | | | | e | + + +-------+---------+------+------+-------+ | | Take 1 capsule by | | | | | Activ | | glucosamine-chondroi | mouth daily. | | | | | e | | tin 500-400 MG CAPS | | | | | | | + + +-------+---------+------+------+-------+ | Multiple | Take 1 tablet by | | | | | Activ | | Vitamins-Minerals | mouth daily. | | | | | e | | (MULTIVITAMIN WITH | | | | | | | | MINERALS) tablet | | | | | | | + + +-------+---------+------+------+-------+ | fluticasone | 1 spray by Each Nare | | | | | Activ | | (FLONASE) 50 MCG/ACT | route daily. | | | | | e | | nasal | | | | | | | + + +-------+---------+------+------+-------+ Active Problems Not on file Social History + +-------+ +--------+------+ | Tobacco Use | Types | Packs/Day | Years | Date | | | | | Used | | + +-------+ +--------+------+ | Former Smoker | | | 30 | | + +-------+ +--------+------+ + +---+---+---+ | Smokeless Tobacco: | | | | | Never Used | | | | + +---+---+---+ + + +---------+ + | Alcohol Use | Drinks/We | oz/Week | Comments | | | ek | | | + + +---------+ + | Yes | | | Occasional | + + +---------+ + + + + | Sex Assigned at | Date Recorded | | | | + + + | Not on file | | + + + Last Filed Vital Signs + + + + | Vital Sign | Reading | Time Taken | + + + + | Blood Pressure | 130/60 | 08/17/2018 10:48 AM PDT | + + + + | Pulse | 87 | 08/17/2018 10:48 AM PDT | + + + + | Temperature | - | - | + + + + | Respiratory Rate | 20 | 08/04/2017 1:31 PM PDT | + + + + | Oxygen Saturation | 99% | 08/17/2018 10:48 AM PDT | + + + + | Inhaled Oxygen | - | - | | Concentration | | | + + + + | Weight | 90 kg (198 lb 6.4 | 08/17/2018 10:48 AM PDT | | | oz) | | + + + + | Height | 165.1 cm (5' 5") | 08/17/2018 10:48 AM PDT | + + + + | Body Mass Index | 33.02 | 08/17/2018 10:48 AM PDT | + + + + Plan of Treatment +--------+ + + + + | Date | Type | Specialty | Care Team | Description | +--------+ + + + + | 02/13/ | Appointment | | Evelio Blount, | | | 2018 | | | MD [address] | | | | | | [place] [address] | | | | | | [phone] | | | | | | | | +--------+ + + + + | 02/27/ | Office | | Evelio Blount, | | | 2018 | Visit | | MD [address] | | | | | | [place] [address] | | | | | | [phone] | | | | | | | [...] Screening | 7 | | | | (Mammogram) | | | | + + + + + | Colon Cancer | | | | | Screening | 7 | | | | (Colonoscopy) | | | | + + + + + | Vaccine: Zoster (1 | | | | | of 2) | 7 | | | + + + + + | DEXA SCAN SCREENING | | | | | | 2 | | | + + [...] filefrom Last 3 Months Insurance + +--------+ +------+-------+ + | Payer | Benefi | Subscriber | Type | Phone | Address | | | t Plan | ID | | | | | | / | | | | | | | Group | | | | | + +--------+ +------+-------+ + | MEDICARE | MEDICA | [id number] | | | [address] | | | RE | | | | [place] [phone] | | | IP-OP | | | | | + +--------+ +------+-------+ + | [employer]AN | ODS | [id number] | | | | | | HEALTH | | | | | | | PLAN | | | | | + +--------+ +------+-------+ + + +--------+ +--------+ + + | Guarantor Name | Accoun | Relation to | Date | Phone | Billing Address | | | t Type | Patient | of | | | | | | | | | | + +--------+ +--------+ + + | EMMA EISENBERG | Person | Self [birth year] | Home: | [address] | | | al/Peter | | 1946 | [phone] [place] | | | mike | | | [phone] | [phone] | + +--------+ +--------+ + +
--- OUTSIDE RECORDS SUMMARY | ~2018-12-21 | XMS | Encounter Summary ---
Demographics + + + | Address | [address] | | | [place] [address] | + + + | Home Phone | | + + + | Preferred Language | Unknown | + + + | Marital Status | | + + + | Hinduism Affiliation | CAT | + + + | Race | White | + + + | Ethnic Group | Not or | + + + Author + + + | Author | [facility] | + + + | Organization | [facility] | + + + | Address | Unknown | + + + | Phone | Unavailable | + + + Support + + +---------+ + | Name | Relationship | Address | Phone | + + +---------+ + | Vijay Eisenberg | ECON | Unknown | | + + +---------+ + Care Team Providers + +------+ + | Care Real Estate Acquisition Analyst Name | Role | Phone | + +------+ + PCP | Unavailable | + +------+ + Encounter Details +--------+ + + + + | Date | Type | Department | Care Team | Description | +--------+ + + + + | 07/06/ | Results | [facility] | Josh Mccracken, | | | 1994 | Only | [facility] | [address] | | | | | [address] | [address] | | | | | [place] Mailcode: | [place], [place] | | | | | [address] | [address] | | | | | [address] | | | | | | [place], [place] | | | | | | [address] | | | | | | [phone] | | | +--------+ + + + [...] | + +--------+ + + + | X-RAY CHEST 2 VIEW | Routin | 07/06/1994 | | Results for this | | | e | 3:00 PM | | procedure are in the | | | | PDT | | results section. | + +--------+ + + + documented in this encounter Results CHEST 2 VIEW (07/06/1994 3:00 PM PDT) + + + + + + | Component | Value | Ref Range | Performed | Pathologist | | | | | At | Signature | + + + + + + | CHEST, 2 | Radiologist 1: DWIGHT | | | | | [place] | SHOAIB | | | | | TRICE | J.-Radiologist 2: | | | | | | SHOAIB QUINTANILLA | | | | | | MIGUE | | | | | | CHEMA | | | | | | | | | | | | | | | | | | [birth year] | | | | | | CHEST, TWO | | | | | | VIEWS: 07/06/94, 1500 | | | | | | | | | | | | HOURS DICTATED: | | | | | | | | | | | | COMPARISON: No films | | | | | | for comparison. | | | | | | FINDINGS: The | | | | | | cardiomediastinal | | | | | | silhouette is | | | | | | unremarkable. Thelung | | | | | | s are grossly | | | | | | clear. No significant | | | | | | effusion is present. | | | | | | IMPRESSION: No | | | | | | significant abnormality. | | | | | | END OF IMPRESSION: | | | | + + + + + + + + | Specimen | + + | | + + + +---------+ + + | Performing | Address | City/State/Zipcode | Phone Number | | Organization | | | | + +---------+ + + | [facility] DEPARTMENT OF | | | | | RADIOLOGY | | | | + +---------+ + + documented in this encounter Visit Diagnoses Not on filedocumented in this encounter"
--- OUTSIDE RECORDS SUMMARY | ~2018-12-21 | XMS | Encounter Summary ---
Demographics + + + | Address | [address] | | | [place] [address] | + + + | Home Phone | | + + + | Preferred Language | Unknown | + + + | Marital Status | | + + + | Amish Affiliation | CAT | + + + | Race | White | + + + | Ethnic Group | Not or | + + + Author + + + | Author | [facility] | + + + | Organization | [facility] | + + + | Address | Unknown | + + + | Phone | Unavailable | + + + Support + + +---------+ + | Name | Relationship | Address | Phone | + + +---------+ + | Vijay Eisenberg | ECON | Unknown | | + + +---------+ + Care Team Providers + +------+ + | Care Environmental Engineer Name | Role | Phone | + +------+ + | Unknown | PCP | Unavailable | + +------+ + Encounter Details +--------+ + + + + | Date | Type | Department | Care Team | Description | +--------+ + + + + | 07/21/ | Results | Registration [id number] | | | | 1995 | Only | [address] | | | | | | [address] Mailcode: [id number] | | | | | | [place], [place] | | | | | | [address] | | | | | | [phone] | | | +--------+ + + + [...] | + +--------+ + + + | MISCELLANEOUS | Routin | 07/22/1995 | | Results for this | | CHEMISTRY TESTS | e | 1:42 PM | | procedure are in the | | | | PDT | | results section. | + +--------+ + + + | ARCHIVE CYTOLOGY | Routin | 07/22/1995 | | Results for this | | | e | | | procedure are in the | | | | | | results section. | + +--------+ + + + documented in this encounter Results MISCELLANEOUS CHEMISTRY TESTS (07/22/1995 1:42 PM PDT) + + + + + + | Component | Value | Ref Range | Performed | Pathologist | | | | | At | Signature | + + + + + + | FSH,SERUM | 5. | mIU/ML | | | + + + + + + + + | Specimen | + + | | + + + + + + + | Performing | Address | City/State/Zipcode | Phone Number | | Organization | | | | + + + + + | [facility]PARTMENT | [address] | [place] [address] | | | PATHOLOGY | [address] | | | + + + + + ARCHIVE CYTOLOGY (07/22/1995) + + + + + + | Component | Value | Ref Range | Performed | Pathologist | | | | | At | Signature | + + + + + + | ARCHIVE | SOURCE OF SPECIMEN: SEE | | [facility] | | | CYTOLOGY | RESULTS | | DEPARTMENT | | | | Preliminary | | OF | | | | History:GYNECOLOGIC | | PATHOLOGY | | | | CYTOLOGY | | | | | | CLINICAL | | | | | | HISTORY: Source | | | | | | of | | | | | | material: Cervix | | | | | | N | | | | | | umber of Slides: 1Reason | | | | | | for | | | | | | examination: | | | | | | RoutineLast | | | | | | Menstrual Period: | | | | | | Hysterectomy in | | | | | | Previous Diagnoses | | | | | | and/or Therapy: Within | | | | | | normal limitsOther: No | | | | | | hormone replacement | | | | | | therapy FINAL | | | | | | DIAGNOSIS | | | | | | I. SPECIMEN | | | | | | ADEQUACY:Satisfactory | | | | | | for evaluation | | | | | | II. GENERAL | | | | | | CATEGORIZATION:Within | | | | | | Normal Limits | | | | | | Case screened | | | | | | by: Lidia Freeman, | | | | | | C.T. :td | | | | | | [...] | + + + + + | [facility] | [address] | [place] [address] | | | PATHOLOGY | [address] | | | + + + + + documented in this encounter Visit Diagnoses Not on filedocumented in this encounter"
--- OUTSIDE RECORDS SUMMARY | ~2018-12-21 | XMS | Encounter Summary ---
Demographics + + + | Address | [address] | | | [place] [address] | + + + | Home Phone | | + + + | Preferred Language | Unknown | + + + | Marital Status | | + + + | Mosque Affiliation | CAT | + + + | Race | White | + + + | Ethnic Group | Not or | + + + Author + + + | Author | [facility] | + + + | Organization | [facility] | + + + | Address | Unknown | + + + | Phone | Unavailable | + + + Support + + +---------+ + | Name | Relationship | Address | Phone | + + +---------+ + | Vijay Eisenberg | ECON | Unknown | | + + +---------+ + Care Team Providers + +------+ + | Care Dramatic Critic Name | Role | Phone | + [...] ODDS | | 1993 | Summary-Tra | [facility] [address] | | | | | nscribed | [address] | | | | | | Mailcode: [address] | | | | | | [address] | | | | | | [facility] [facility] | | | | | | [place] [address] | | | | | | [phone] | | | +--------+ + + + [...] as of this encounter Discharge Summaries Interface, Income Tax Manager In - 06/27/2006 3:05 AM PDT [address] [address] [facility] MEDICAL SUMMARY OF HOSPITALIZATION Med Rec No.: [id number] Admission Date: 07/07/94 Name: Emma Eisenberg Discharge Date: 07/10/94 STAFF PHYSICIAN: Jenn Mccracken M.D. Professor and Web Press Jogger, Obstetrics and Gynecology PRINCIPAL FINAL DIAGNOSIS: Complex [...] and Gynecology Jenn Mccracken M.D. Professor and Web Press Jogger, Obstetrics and Gynecology ANÍBAL/ramon P cc: documented in this encounter Plan of Treatment Not on filedocumented as of this encounter Visit Diagnoses Not on filedocumented in this encounter"
--- OUTSIDE RECORDS SUMMARY | ~2018-12-21 | XMS | Encounter Summary ---
Demographics + + + | Address | [address] | | | [place] [address] | + + + | Home Phone | | + + + | Preferred Language | Unknown | + + + | Marital Status | | + + + | Mandaen Affiliation | CAT | + + + [...] Team Providers + +------+ + | Care Route Manager Name | Role | Phone | + [...] [id number] | | | | | | [place], [place] | | | | | | [address] | | | | | | [phone] | | | +--------+ + + + [...] | + + + + + | [facility] DEPARTMENT | [address] | [place] [address] | | | PATHOLOGY | [address] | | | + + + + + ARCHIVE CYTOLOGY (07/22/1995) + + + + + + | Component | Value | Ref Range | Performed | Pathologist | | | | | At | Signature | + + + + + + | ARCHIVE | SOURCE OF SPECIMEN: SEE | | [facility] | | | CYTOLOGY | RESULTS | [...] | + + + + + | [facility] | [address] | [place] [address] | | | PATHOLOGY | [address] | | | + + + + + documented in this encounter Visit Diagnoses Not on filedocumented in this encounter"
--- OUTSIDE RECORDS SUMMARY | ~2018-12-21 | XMS | Encounter Summary ---
Demographics + + + | Address | [address] | | | [place] [address] | + + + | Home Phone | | + + + | Preferred Language | Unknown | + + + | Marital Status | | + + + | Caodaism Affiliation | CAT | + + + | Race | White | + + + | Ethnic Group | Not or | + + + Author + + + | Author | [facility] | + + + | Organization | [facility] | + + + | Address | Unknown | + + + | Phone | Unavailable | + + + Support + + +---------+ + | Name | Relationship | Address | Phone | + + +---------+ + | Vijay Eisenberg | ECON | Unknown | | + + +---------+ + Care Team Providers + +------+ + | Care Collar Baster Jumpbasting Name | Role | Phone | + +------+ + | Unknown | PCP | Unavailable | + +------+ + Encounter Details +--------+ + + + + | Date | Type | Department | Care Team | Description | +--------+ + + + + | 09/23/ | Ancillary | Registration [id number] | [address], | | | [address] | [address] | [address] | | | | | [address] | [address] Mailcode: [id number] | | | | | | [place], [place] | | | | | | [address] | | | | | | [phone] | | | +--------+ + + + [...] | + +--------+ + + + | FERRITIN | Routin | 09/23/2004 | | Results for this | | | e | 1:59 PM | | procedure are in the | | | | PDT | | results section. | + +--------+ + + + documented in this encounter Results FERRITIN (09/23/2004 1:59 PM PDT) + + + + + + | Component | Value | Ref Range | Performed | Pathologist | | | | | At | Signature | + + + + + + | FERRITIN | 68Comment: Test | 10 - 291 ng/mL | | | | | performed at [facility] | | [facility] | | | | | | [facility] | | | | + + + + + + + + | Specimen | + + | | + + + + + + + | Performing | Address | City/State/Zipcode | Phone Number | | Organization | | | | + + + + + | [facility] | [address] | [place] [address] | | | LABORATORY | | | | + + + + + documented in this encounter Visit Diagnoses Not on filedocumented in this encounter"
--- OUTSIDE RECORDS SUMMARY | ~2018-12-21 | XMS | Encounter Summary ---
Demographics + + + | Address | [address] | | | [place] [address] | + + + | Home Phone [...] Team Providers + +------+ + | Care Switch Cleaner Name | Role | Phone | + +------+ + PCP | Unavailable | + +------+ + Encounter Details +--------+ + + + + | Date | Type | Department | Care Team | Description | +--------+ + + + + | 12/07/ | Results | | Other, Faculty | | | 1994 | Only | | [phone] | | +--------+ + + + + [...]
--- OUTSIDE RECORDS SUMMARY | ~2018-12-21 | XMS | Encounter Summary ---
Demographics + + + | Address | [address] | | | [place] [address] | + + + | Home Phone | | + + + | Preferred Language | Unknown | + + + | Marital Status | | + + + | Yazdanism Affiliation | CAT | + + + [...] Team Providers + +------+ + | Care Floor Coverings Salesperson Name | Role | Phone | + [...] [id number] | | | | | | [place], [place] | | | | | | [address] | | | | | | [phone] | | | +--------+ + + + [...] | + + + + + | [facility] | [address] | [place] [address] | | | PATHOLOGY | [address] | | | + + + + + documented in this encounter Visit Diagnoses Not on filedocumented in this encounter"
--- OUTSIDE RECORDS SUMMARY | ~2018-12-21 | XMS | Encounter Summary ---
Demographics + + + | Address | [address] | | | [place] [address] | + + + | Home Phone | | + + + | Preferred Language | Unknown | + + + | Marital Status | | + + + | Voodoo Affiliation | CAT | + + + | Race | White | + + + | Ethnic Group | Not or | + + + Author + + + | Author | [facility] | + + + | Organization | [facility] | + + + | Address | Unknown | + + + | Phone | Unavailable | + + + Support + + +---------+ + | Name | Relationship | Address | Phone | + + +---------+ + | Vijay Eisenberg | ECON | Unknown | | + + +---------+ + Care Team Providers + +------+ + | Care Patient Account Liaison Name | Role | Phone | + [...] [facility] | | | | | | [place] [address] [place] | | | | | | [place], [place] | [place], [place] | | | | | | [address] | [address] | | | | | | Phone: | Phone: | | | | | | [phone] | [phone] | | | | | | Fax: | Fax: | | | | | | [phone] | [phone] | +--------+--------+ + + + + Encounter Details +--------+ + + + + | Date | Type | Department | Care Team | Description | +--------+ + + + + | 02/22/ | Outside | Neurophysiology | [place], | | | 2010 | Referral | EEG at [facility] [address] | Giles Painter MD | | | | Order | [address] | [address] | | | | | Mailcode: JOHN | [place] [address] | | | | | [facility] | [phone] | | | | | [place], [place] | | | | | | [address] | | | | | | [phone] | | | +--------+ + + + [...] 02/19/2011 Place | | | of Service: [facility] Department: EEG [facility] - [id number] | | | ROUTINE EEG Reason for [...] | | | Kingsley Hays Suggested CPT: 42332 - EEG Routine Awake Only | | | Suggested Dx: [id number]-Convulsions | | + + + documented in this encounter Visit Diagnoses Not on filedocumented in this encounter"
--- OUTSIDE RECORDS SUMMARY | ~2018-12-21 | XMS | Encounter Summary ---
Demographics + + + | Address | [address] | | | [place] [address] | + + + | Home Phone | | + + + | Preferred Language | Unknown | + + + | Marital Status | | + + + | Christian Affiliation | CAT | + + + | Race | White | + + + | Ethnic Group | Not or | + + + Author + + + | Author | [facility] | + + + | Organization | [facility] | + + + | Address | Unknown | + + + | Phone | Unavailable | + + + Support + + +---------+ + | Name | Relationship | Address | Phone | + + +---------+ + | Vijay Eisenberg | ECON | Unknown | | + + +---------+ + Care Team Providers + +------+ + | Care Supervisor Slitting And Shipping Name | Role | Phone | + +------+ + | Unknown | PCP | Unavailable | + +------+ + Encounter Details +--------+ + + + + | Date | Type | Department | Care Team | Description | +--------+ + + + + | 07/07/ | Procedure - | UNKNOWN DEPARTMENT | Record, Operation | Operative Report | | 1994 | | [address] | | | | | Transcribed | [address] | | | | | | [place], [place] | | | | | | [address] | | | +--------+ + + + [...] | + +--------+ + + + | OPERATION RECORD | | 07/07/1994 | | Results for this | | | | 12:00 AM | | procedure are in the | | | | PDT | | results section. | + +--------+ + + + documented in this encounter Results OPERATION RECORD (07/07/1994 12:00 AM PDT) + + | Procedure Note | + + | 07/07/1994 12:00 AM PDT [place] | | [facility] | | [address] [place] [address] | | [facility] | | | | OPERATION RECORD | | | | Med Rec No.: [id number] Date: 07/07/94 | | | | Name: Emma Eisenberg | | | | | | ATTENDING SURGEON: Jenn Mccracken M.D. | | Professor and Loom Overhauler, | | Obstetrics and Gynecology | | | | PRINCIPAL NETWORK ARCHITECT(S): Mary Carmen Johnson M.D. | | Resident, Obstetrics and Gynecology | | | | Denia Marley M.D. | | Resident, Obstetrics and Gynecology | | | | POSTOPERATIVE DIAGNOSIS(ES): Dysfunctional uterine bleeding with complex | | hyperplasia. | | | | OPERATION(S) PERFORMED: Total vaginal hysterectomy and right | | salpingo-oophorectomy. | | | | SPECIMEN(S) REMOVED: Uterus, right ovary and tube. | | | | ANESTHESIA: General endotracheal anesthesia. | | | | COMPLICATIONS: None. | | | | ESTIMATED BLOOD LOSS: 250 cc. | | | | FLUIDS: 2200 cc Crystalloid. | | | | FINDINGS: 8- to 10-week size uterus with irregular | | contour. Multiple small leiomyomata in the | | uterine cavity and cervix. No evidence of | | adenocarcinoma. | | | | PROCEDURE: The patient was identified and taken to the | | Operating Room where she was placed in | | [facility]. Her | | abdomen and vagina were prepped and draped in sterile fashion and the | | bladder was emptied. A weighted speculum was placed in the vagina and the | | cervix was grasped with a toothed tenaculum. The cervix was injected | | circumferentially with 0.5 percent lidocaine with epinephrine. The cervix | | was circumferentially incised with a scalpel and the bladder dissected off | | the pubocervical fascia anteriorly with an open Raytec sponge. The | | posterior cul-de-sac was entered sharply and the uterosacral ligaments were | | bilaterally clamped, cut and suture ligated. The anterior cul-de-sac was | | then carefully entered sharply with care taken to avoid the bladder. | | | | A curved Keith clamp then was used to serially clamp and suture ligate the | | cardinal ligaments. The uterine arteries and the remainder of the broad | | ligament were again serially clamped with Keith clamps, transected, and | | suture ligated bilaterally. Both uterine cornua were clamped, transected, | | and the uterus was delivered. The pedicles were then free-tied and suture | | ligated. The right ovary was inspected and noted to be significantly | | enlarged with hemorrhagic cysts. The left ovary was small and normal. | | | | The right infundibulopelvic ligament was then clamped with a kidney clamp | | and transected. The right ovary and tube were handed off to Pathology. The | | pedicle was then free-tied and then suture ligated. Hemostasis was noted to | | be excellent. The cardinal ligaments were placed through a free needle and | | brought out into the posterior vaginal cuff. These were tied down, thus | | providing excellent support to the vaginal cuff. The vaginal cuff was then | | closed with serial [id number] 0 Vicryl sutures in an interrupted | | fashion. | | | | The instruments were removed from the vagina. The patient was taken out of | | the dorsal lithotomy position and awakened from her general anesthesia. | | Sponge and needle counts were reported as correct times two. She was taken | | to the Post-Anesthesia Recovery Area in stable condition. | | | | | | | | Mary Carmen Johnson M.D. | | Resident, Obstetrics and Gynecology | | Jenn Mccracken M.D. | | Professor and Loom Overhauler, | | Obstetrics and Gynecology | | ANÍBAL/maren | | | | P | | | | cc: | | | + + documented in this encounter Visit Diagnoses Not on filedocumented in this encounter"
--- OUTSIDE RECORDS SUMMARY | ~2018-12-21 | XMS | Encounter Summary ---
Demographics + + + | Address | [address] | | | [place] [address] | + + + | Home Phone [...] Team Providers + +------+ + | Care District Recruiter Name | Role | Phone | + [...] as of this encounter Progress Notes Interface, Tape Control Skin Or Spar Mill Operator In - 08/30/2005 3:08 AM PDTCLINIC DATE: [...] toward the septum. The patient may use Tyrrell Nasal spray as well on a regular basis. She may continue to use her bacitracin ointment for the next couple of weeks. The patient will, otherwise, follow up in 3 months' time. Justino Galindo M.D. CAROLE / CHEYANNE [id number] / [id number] / [id number] / Giang Tape Control Skin Or Spar Mill Operator In - 08/30/2005 3:08 AM PDTCLINIC DATE: [...] by herpes, and therefore, she took various [id number] herpes remedies with no relief. She was [...] smoking 10 years ago, but amassed a 59-lvyd-abht smoking history. She drinks 1 to 2 [...] to reassess. MD Justino Dill M.D. / [id number] / [id number] / [id number] / Tdocumented in this encounter Plan of Treatment Not on filedocumented as of this encounter Visit Diagnoses Not on filedocumented in this encounter"
--- OUTSIDE RECORDS SUMMARY | ~2018-12-21 | XMS | Encounter Summary ---
Demographics + + + | Address | [address] | | | [place] [address] | + + + | Home Phone [...] + + + | Author | [facility] | + + + | Organization | [facility] | + + + | Address | Unknown | + + + | Phone | Unavailable | + + + Support + + +---------+ + | Name | Relationship | Address | Phone | + + +---------+ + | Vijay Eisenberg | ECON | Unknown | | + + +---------+ + Care Team Providers + +------+ + | Care Inbound Call Center Representative Name | Role | Phone | + [...] | | | M[address] Mailcode: | [place], [place] | | | | | [id number] | [id number] | | | | | [address] | | | | | | [place], [place] | | | | | | [address] | | | | | | [phone] | | | +--------+ + + + [...] | | + +---------+ + + | [facility] DEPARTMENT OF | | | | | RADIOLOGY | | | | + +---------+ + + documented in this encounter Visit Diagnoses Not on filedocumented in this encounter"
--- OUTSIDE RECORDS SUMMARY | ~2018-12-21 | XMS | Encounter Summary ---
Demographics + + + | Address | [address] | | | [place] [address] | + + + | Home Phone [...] Team Providers + +------+ + | Care Health Care Facility Administrator Name | Role | Phone | + [...] [id number] | | | | | | [place], [place] | | | | | | [address] | | | | | | [phone] | | | +--------+ + + + [...] | + + + + + | [facility] | [address] | [place] [address] | | | LABORATORY | | | | + + + + + documented in this encounter Visit Diagnoses Not on filedocumented in this encounter"
--- OUTSIDE RECORDS SUMMARY | ~2018-12-21 | XMS | Clinical Summary ---
Demographics + + + | Address | [address] | | | [place] [address] | + + + | Home Phone | | + + + | Preferred Language | Unknown | + + + | Marital Status | | + + + | Scientology Affiliation | Unknown | + + + | Race | Unknown | + + + | Ethnic Group | Unknown | + + + Author + + + | Author | [facility] (Historical as of | | | 10-28-18) | + + + | Organization | [facility] [employer] (Historical as of | | | 10-28-18) [...] Team Providers + +------+ + | Care Sandwich Machine Operator Name | Role | Phone | + [...] | | | Activ | | (DRISDOL) [id number] | mouth once a week. | | [...] | | | | | [place] [address] | | | | | | [phone] | | | | | | | | +--------+ + + + + | 02/27/ | Office | | Evelio Blount, | | | 2018 | Visit | | MD [address] | | | | | | [place] [address] | | | | | | [phone] | | | | | | | [...] +------+-------+ + | MEDICARE | MEDICA | [id number] | | | [address] | | | RE | | | | [place] [address] | | | IP-OP | | | | | + +--------+ +------+-------+ + | [employer]AN | ODS | [id number] | | | | | | HEALTH [...] | | al/Peter | | 1946 | [phone] | [place] | | | mike | | | [phone] | [address] | + +--------+ +--------+ + +
--- OUTSIDE RECORDS SUMMARY | ~2018-12-21 | XMS | Encounter Summary ---
Demographics + + + | Address | [address] | | | [place] [address] | + + + | Home Phone | | + + + | Preferred Language | Unknown | + + + | Marital Status | | + + + | Jainism Affiliation | CAT | + + + | Race | White | + + + | Ethnic Group | Not or | + + + Author + + + | Author | [facility] | + + + | Organization | [facility] | + + + | Address | Unknown | + + + | Phone | Unavailable | + + + Support + + +---------+ + | Name | Relationship | Address | Phone | + + +---------+ + | Vijay Eisenberg | ECON | Unknown | | + + +---------+ + Care Team Providers + +------+ + | Care Svp Research & Ebusiness Operations Name | Role | Phone | + [...] [address] | | | | | | [place], [place] | | | | | | [address] | | | +--------+ + + + [...] 07/07/1994 12:00 AM PDT [place] | | [facility] | | [address] [place] [address] | | [facility] | | | | OPERATION RECORD | | | | Med Rec No.: [id number] Date: 07/07/94 | | | | Name: Emma Eisenberg | | | | | | ATTENDING SURGEON: Jenn Mccracken M.D. | | Professor and Cloth Presser, | | Obstetrics and Gynecology | | | | REPORTING ANALYST(S): Mary Carmen Johnson M.D. | | Resident, [...] where she was placed in | | [facility]. Her | | abdomen and vagina were [...] was then | | closed with serial [id number]-ar-[id number] 0 Vicryl sutures in an interrupted | [...] Jenn Mccracken M.D. | | Professor and Cloth Presser, | | Obstetrics and Gynecology | | ANÍBAL/maren | | | | P | | | | cc: | | | + + documented in this encounter Visit Diagnoses Not on filedocumented in this encounter"
--- OUTSIDE RECORDS SUMMARY | ~2018-12-21 | XMS | Encounter Summary ---
Demographics + + + | Address | [address] | | | [place] [address] | + + + | Home Phone | | + + + | Preferred Language | Unknown | + + + | Marital Status | | + + + | Baptism Affiliation | CAT | + + + | Race | White | + + + | Ethnic Group | Not or | + + + Author + + + | Author | [facility] | + + + | Organization | [facility] | + + + | Address | Unknown | + + + | Phone | Unavailable | + + + Support + + +---------+ + | Name | Relationship | Address | Phone | + + +---------+ + | Vijay Eisenberg | ECON | Unknown | | + + +---------+ + Care Team Providers + +------+ + | Care Wood Cabinetmaker Name | Role | Phone | + [...] [address] | | | | | | [place], [place] | | | | | | [address] | | | | | | [phone] | | | +--------+---------+ + + + [...] comments. Aleshia Arvizu - 12/13 1:24 PM [facility] Eisenberg is a 60 y.o. female [...] for evaluation Aleshia Hunter MD Resident Physician, [facility] Department of Dermatology documented in this encoun [...]
--- OUTSIDE RECORDS SUMMARY | ~2018-12-21 | XMS | Encounter Summary ---
Demographics + + + | Address | [address] | | | [place] [address] | + + + | Home Phone | | + + + | Preferred Language | Unknown | + + + | Marital Status | | + + + | Hindu Affiliation | Unknown | + + + | Race | Unknown | + + + | Ethnic Group | Unknown | + + + Author + + + | Author | [facility] | | | and [place] | + + + | Organization | [facility] | | | [...] Team Providers + +------+ + | Care Reflexologist Name | Role | Phone | + +------+ + | Giles Navarrete MD | PCP | | + +------+ + Encounter Details +--------+ + + + + | Date | Type | Department | Care Team | Description | +--------+ + + + + | 10/05/ | Orders Only | [facility] | Provider, | | | 2018 | | SYSTEM GENERIC OP | MD [address] | | | | | [address] | [address] [place] | | | | | [address] [place], [place] | [place] [address] | | | | | [address] | | | | | | [phone] | | | +--------+ + + + [...] | | | | | [place] [address] | | | | | | [phone] | | | | | | | | +--------+ + + + + | 02/27/ | Office | Cardiology | Evelio Blount, | | | 2018 | Visit | | MD [address] | | | | | | [place] [address] | | | | | | [phone] | | | | | | | | +--------+ + + + + documented as of this encounter Visit Diagnoses Not on filedocumented in this encounter"
--- NOTE | 2018-12-21 23:24 | EKG ---
[facility] [address] [facility] [place], [place] [address] Signed Sinus tachycardia Left ventricular hypertrophy with repolarization abnormality Cannot rule out Septal infarct (cited on or before 26-APR-2017) Abnormal ECG When compared with ECG of 26-APR-2017 10:15, Questionable change in initial forces of Septal leads ST more depressed in Inferior leads ST now depressed in Anterolateral leads Confirmed by FABIOLA BROWN MD ([id number]) on 12/21/2018 11:24:46 PM Electronically Signed By: FABIOLA BROWN MD 12/21/18 2324 PATIENT NAME: CHEMA LENTZ Electrocardiogram DATE OF : 47 PHYSICIAN: FABIOLA BROWN MD REPORT #: [id number] REPORT IS CONFIDENTIAL AND NOT TO BE RELEASED WITHOUT AUTHORIZATION
== END 2018-12-22 01:05 | disposition short-term general hospital (02) ==
LOC: ED 20:37
DX: I20.0 Unstable angina (principal); E78.00 Pure hypercholesterolemia, unspecified; Z87.891 Personal history of nicotine dependence; Z88.5 Allergy status to narcotic agent; Z88.8 Allergy status to other drugs, medicaments and biological substances; Z79.899 Other long term (current) drug therapy; Z79.82 Long term (current) use of aspirin
CPT/HCPCS: 71045; 80053; 83735; 84484; 85025; 85610; 85730; 93005; 93010; 96374; 99285-25; J1644